=== PATIENT | male | born 1950 | race Caucasian/White ===

== ENCOUNTER 2019-01-02 18:07 | Emergency (ER) | payer MEDICARE, OTHER ==
--- OUTSIDE RECORDS SUMMARY | 2019-01-02 18:13 | XMS REPORT | Continuity of Care Document ---
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 Onset: 04/17/2017 Family history of periodic limb Kathia Dawson DNP, RN, SULEIMAN-BC Onset: 08/15 movement disorder Periodic limb movement disorder Basilio Meza M.D. 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 Tobacco Use Start: Unknown No smoking since a teenager ETOH Use Rarely consumes alcohol Tobacco Use Start: Unknown End: Patient is a former smoker Unknown Recreational Drug Use Denies Drug Use Tobacco Use Start: Unknown Heavy tobacco smoker (more than 10 cigarettes/day) Smoking When in teenage years Smoking Status Reviewed: 01/02/19 Heavy tobacco smoker (more than 10 cigarettes/day) Exercise Type/Frequency Exercises regularly Exercise Type/Frequency Walks 1 hour every Elliptical day/also dances Allergies, Adverse Reactions, Alerts Description No Known Drug Allergies Medications Active Medications SIG Qnty Indications Ordering Provider Date Carbidopa-Levodopa Take One Tablet 90tabs G20 Harjinderbhartikelton Meza, 06/21/2017 By Mouth Three M.D. 25-100mg Tablets Times A Day 30 Minutes Before Meals Melatonin ER 1 tab by mouth Unknown 03/08/2015 3mg every day every Tablets ER night Multivitamin Adults every day by Unknown 03/08/2015 45+ mouth Adlt 50+ Tablets Trazodone HCL Take One Half Unknown 50mg To One Tablet Tablets By Mouth as Needed AT Bedtime Lexapro 1/2 by mouth Unknown 10mg Tablets every day Fluticasone 2 sprays each Unknown Propionate nostril daily 50mcg/Act as needed Suspension Levothyroxine Sodium 1 by mouth Unknown every day 25mcg Tablets History Medications Carbidopa-Levodopa ER 1/2 by mouth 45tabs G20 Kathya Romy, 05/18/2017 - 25-100mg three times a M.D. 06/21/2017 Tablets ER day 30 min prior to meals or 2 hours after meal. Mucinex 1 by mouth as Unknown 08/16/2015 - 600mg Tablets ER 12HR directed / as 02/13/2017 needed Montelukast Sodium 1 by mouth every Unknown 08/16/2015 - 10mg Tablets day 02/13/2017 Fluticasone Propionate 2 sprays each Unknown 04/29/2015 - 50mcg/Act nostril daily as 02/13/2017 Suspension needed Lexapro take one-half Unknown 03/08/2015 - 5mg Tablets tablet by mouth 02/13/2017 daily. Mucinex twice a day as Unknown - 600mg Tablets ER 12HR needed 06/20/2017 Immunizations CPT Code Status Date Vaccine Lot # [id number] Given 08/17/2015 Fluvirin Im 3Yrs And Older Vital Signs Date Vital Result Comment 01/02/2019 3:36pm Height 70 inches 5'10" Weight 165.00 lb Heart Rate 58 /min BP Systolic 102 mmHg BP Diastolic 68 mmHg BMI (Body Mass Index) 23.7 kg/m2 09/11/2018 2:24pm Height 70 inches 5'10" Weight 163.25 lb Heart Rate 62 /min BP Systolic Sitting 104 mmHg Lue reg cuff BP Diastolic Sitting 70 mmHg Lue reg cuff Respiratory Rate 18 /min O2 % BldC Oximetry 97 % On Ra BMI (Body Mass Index) 23.4 kg/m2 08/15/2018 4:03pm Height 70 inches 5'10" Weight 174.00 lb Heart Rate 68 /min BP Systolic Sitting 90 mmHg large adult cuff left arm BP Diastolic Sitting 70 mmHg large adult cuff left arm Respiratory Rate 16 /min BMI (Body Mass Index) 25.0 kg/m2 02/22/2018 3:02pm Height 70 inches 5'10" Weight 160.00 lb Heart Rate 74 /min BP Systolic Sitting 110 mmHg BP Diastolic Sitting 78 mmHg Respiratory Rate 16 /min BMI (Body Mass Index) 23.0 kg/m2 11/12/2017 2:45pm Height 70 inches 5'10" Weight 165.00 lb Heart Rate 80 /min BP Systolic Sitting 92 mmHg BP Diastolic Sitting 58 mmHg Respiratory Rate 16 /min BMI (Body Mass Index) 23.7 kg/m2 08/15/2017 3:20pm Height 70 inches 5'10" Weight 170.50 lb with boots Heart Rate 64 /min BP Systolic Sitting 118 mmHg Rue reg cuff BP Diastolic Sitting 80 mmHg Rue reg cuff Respiratory Rate 16 /min O2 % BldC Oximetry 98 % On Ra BMI (Body Mass Index) 24.5 kg/m2 08/13/2017 2:22pm Height 70 inches 5'10" Weight 165.00 lb Heart Rate 68 /min BP Systolic 112 mmHg BP Diastolic 74 mmHg Respiratory Rate 14 /min BMI (Body Mass Index) 23.7 kg/m2 06/21/2017 3:44pm Height 70 inches 5'10" Weight 165.00 lb Heart Rate 76 /min BP Systolic Sitting 112 mmHg BP Diastolic Sitting 64 mmHg Respiratory Rate 16 /min BMI (Body Mass Index) 23.7 kg/m2 05/18/2017 3:45pm Height 70 inches 5'10" Weight 163.00 lb per pt Heart Rate 68 /min reg BP Systolic Sitting 124 mmHg Rue, reg cuff BP Diastolic Sitting 80 mmHg Rue, reg cuff Respiratory Rate 16 /min BMI (Body Mass Index) 23.4 kg/m2 04/17/2017 9:28am Height 70 inches 5'10" Weight 165.00 lb Heart Rate 60 /min BP Systolic 122 mmHg BP Diastolic 74 mmHg Respiratory Rate 14 /min BMI (Body Mass Index) 23.7 kg/m2 02/14/2017 2:19pm Height 70 inches 5'10" Weight 162.00 lb Heart Rate 64 /min BP Systolic Sitting 102 mmHg BP Diastolic Sitting 64 mmHg Respiratory Rate 14 /min O2 % BldC Oximetry 97 % BMI (Body Mass Index) 23.2 kg/m2 02/15/2016 3:19pm Height 70 inches 5'10" Weight 165.00 lb Heart Rate 56 /min BP Systolic Sitting 118 mmHg BP Diastolic Sitting 62 mmHg Respiratory Rate 16 /min O2 % BldC Oximetry 98 % BMI (Body Mass Index) 23.7 kg/m2 08/17/2015 3:35pm Height 70 inches 5'10" Weight 165.00 lb Heart Rate 60 /min BP Systolic Sitting 110 mmHg BP Diastolic Sitting 56 mmHg Respiratory Rate 14 /min O2 % BldC Oximetry 96 % BMI (Body Mass Index) 23.7 kg/m2 06/15/2015 3:39pm Height 70 inches 5'10" Heart Rate 64 /min BP Systolic 108 mmHg BP Diastolic 64 mmHg Respiratory Rate 14 /min O2 % BldC Oximetry 99 % 04/30/2015 3:36pm Height 70 inches 5'10" Weight 160.00 lb Heart Rate 65 /min BP Systolic Sitting 124 mmHg BP Diastolic Sitting 54 mmHg O2 % BldC Oximetry 97 % BMI (Body Mass Index) 23.0 kg/m2 03/09/2015 2:09pm Height 70 inches 5'10" Weight 162.25 lb Heart Rate 66 /min BP Systolic Sitting 118 mmHg BP Diastolic Sitting 64 mmHg Respiratory Rate 16 /min Body Temperature 97.1 F O2 % BldC Oximetry 98 % BMI (Body Mass Index) 23.3 kg/m2 Results Test Date Facility Test Result H/L Range Note Laboratory test 11/26/2017 [facility] Ferritin 29.7 ng/mL N 24 -336 finding [address] [place] [address] [phone] Laboratory test 05/02/2017 [facility] Copper, Serum 0.90 g/mL N 0.75-1.[address] [place] [address] [phone] Ceruloplasmin 23.3 mg/dL N 2 Laboratory test 02/14/2017 [facility] Ferritin 10.1 ng/mL Low 24-[address] [place] [address] [phone] Iron & Iron Binding 02/14/2017 [facility] Iron 192 g/dL N 50 -[address] [place] [address] [phone] Unsaturated Iron Binding 229 g/dL N Total Iron Binding Capacity 421 g/dL N 250-450 % Iron Saturation 46 % N 15-55 Laboratory test 02/14/2017 [facility] Vitamin B12 863 pg/mL N 180-914 [address] [place] [address] [phone] ADDITIONAL INFORMATION This test was developed and its performance characteristics determined by [facility] in a manner consistent with CLIA requirements. This test has not been cleared or approved by the U.S. Food and Drug Administration. Test Performed by: [facility] [address] [place] [id number] 2 REFERENCE VALUE 19.0 - 31.0 Test Performed by: [facility] - [address] [address] 3 Normal Range 180 to 914 Indeterminate Range 145 to 180 Deficient Range <145 Procedures Date Code Description Status 04/01/2015 67972 Polysomnography Sleep Staging 4+ Parameters Completed Encounters Type Date Location Provider Dx Diagnosis Office Visit 09/11/2018 [facility] Kathia Dawson, G47.33 Obstructive sleep 2:30p [facility] RN, PAPER FEEDER-BC apnea (adult) 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 disease G47.33 Obstructive sleep apnea (adult) (pediatric) G47.61 Periodic limb movement disorder Office Visit 02/22/2018 3:00p [facility] Basilio Meza, G20 [facility] M.D. disease G47.33 Obstructive sleep apnea (adult) (pediatric) Office Visit 11/12/2017 [facility] Basilio Meza, G20 Parkinson' s 2:45p [facility] M.D. 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 disease Office Visit 06/21/2017 3:45p [facility] Basilio Meza, G20 [facility] M.D. disease Office Visit 05/18/2017 3:45p [facility] Basilio Meza, G20 [facility] M.D. disease Office Visit 04/17/2017 9:30a [facility] Basilio Meza, G20 [facility] M.D. disease G47.33 Obstructive sleep apnea (adult) (pediatric) Office Visit 02/14/2017 Pulmonology And Kathia G47.33 Obstructive sleep 2:00p [facility] Dawson RN, apnea (adult) [facility] PAPER FEEDER-BC (pediatric) G47.61 Periodic limb movement disorder Office Visit 02/15/2016 Pulmonology And Kathia G47.33 Obstructive sleep 3:15p [facility] Dawson RN, apnea (adult) [facility] PAPER FEEDER-BC (pediatric) Office Visit 08/17/2015 Pulmonology And Kathia G47.33 Obstructive sleep 3:30p [facility] Dawson RN, apnea (adult) [facility] PAPER FEEDER-BC (pediatric) Office Visit 06/15/2015 Pulmonology And Kathia G47.33 Obstructive sleep 3:30p [facility] Dawson RN, apnea (adult) [facility] PAPER FEEDER-BC (pediatric) Office Visit 04/30/2015 Pulmonology And Kathia G47.33 Obstructive sleep 3:30p [facility] Dawson, RN, apnea (adult) [facility] PAPER FEEDER-BC (pediatric) G47.10 Hypersomnia, unspecified Office Visit 03/09/2015 Pulmonology And Yin 780.54 Hypersomnia 2:00p [facility] Deandre Unspecified [facility] Office Visit 11/29/2009 Neurosurgery Yayo Najera 722.10 Intervertebral Disc 2:30p [facility] Joaquim Crowder 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 at [facility]08/27/2019 2:00 pm - Kathia Dawson DNP, RN, PAPER FEEDER- BC at [facility]01/02/2019 - Carlitos Sánchez N.PLorenaG20 Parkinson's diseaseFollow up:[address] Meza
--- OUTSIDE RECORDS SUMMARY | 2019-01-02 18:14 | XMS REPORT | Continuity of Care Document ---
:1950 External Reference #:[id number] Author Name Odilon More M.D. Address [address] [place] [address] Care Team Providers Name Role Phone Odilon More MD Care Team Information Drosser Unavailable Odilon More MD Primary Care Physician Unavailable Payers Date Identification Numbers Payment Provider Subscriber Effective: 2014 Policy Number: [id number] [employer] [place] Jameel Reyes PayID: [id number] [address] [place] [address] Effective: 2014 Policy Number: [id number] [place]el Reyes Expires: 2018 PayID: [id number] [address] [place] [address] Effective: 2014 Policy Number: [id number] [facility]el Reyes Group Number: [id number] [address] PayID: [id number] [place] [address] Problems Active Problems Provider Date Allergic rhinitis Odilon More M.D. Onset: 09/27/2012 Hyperlipidemia Odilon More M.D. Onset: 02/28/2015 Headache Odilon More M.D. Onset: 08/10/2015 Mixed hyperlipidemia Odilon More M.D. Onset: 08/10/2015 Non-neoplastic nevus Odilon More M.D. Onset: 01/29/2017 Obstructive sleep apnea syndrome Odilon More M.D. Onset: 01/29/2017 Chronic maxillary sinusitis Odilon More M.D. Onset: 08/02/2017 Parkinson's disease Odilon More M.D. Onset: 08/02/2017 Allergic contact dermatitis due to plants, Odilon More M.D. Onset: except food Iron deficiency Odilon More M.D. Onset: 02/07/2018 Malaise and fatigue Odilon More M.D. Onset: 12/19/2018 Knee pain Odilon More M.D. Onset: 12/19/2018 Inactive Problems Arthralgia of the lower leg Carolann Kendrick M.D. Onset: 06/12/2011 Inactive: 08/02/2017 Allergic rhinitis due to animals Edu Shrestha M.D. Onset: 06/12/2011 Inactive: 08/02/2017 Anxiety state SULEIMAN Garcia Onset: 06/12/2011 Inactive: 08/02/2017 Candidiasis Joann Patterson M.D. Onset: 01/25/2012 Inactive: 08/02/2017 Hard prostate Odilon More M.D. Onset: 09/27/2012 Inactive: 08/02/2017 Acute sinusitis Alonso Subramanian M.D. Onset: 05/02/2014 Inactive: 08/02/2017 Acute upper respiratory infection Alonso Subramanian M.D. Onset: 05/02/2014 Inactive: 08/02/2017 Multiple joint pain Odilno More M.D. Onset: 11/03/2014 Inactive: 08/02/2017 Symptom of skin and integumentary tissue Odilon More M.D. Onset: 2014 Inactive: 08/02/2017 Essential tremor Odilon More M.D. Onset: 08/10/2015 Inactive: 08/02/2017 Herpes zoster without complication Odilon More M.D. Onset: 08/10/2015 Inactive: 08/02/2017 Acute maxillary sinusitis Travis Bess M.D. Onset: 08/20/2015 Inactive: 08/02/2017 Abnormal involuntary movement Odilon More M.D. Onset: 01/29/2017 Inactive: 08/02/2017 Adult health examination Odilon More M.D. 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 Tobacco Use Start: Unknown Nonsmoker Tobacco Use Start: Unknown End: Former Cigarette Smoker 1 x 1 year in high Unknown [employer] Daily school. Smoking Status Reviewed: 09/17/18 Former Cigarette Smoker 1 x 1 year in high [employer] Daily school. Tobacco Use Start: Unknown Nonsmoker Allergies, Adverse Reactions, Alerts Active Allergies Reaction Severity Comments Date NKDA 01/25/2012 Inactive Allergies Nka 05/05/1998 Soy 02/04/2010 Medications Active Medications SIG Qnty Indications Ordering Date Provider Physical Therapy treatment and Odilon FLorena 12/19/2018 evaluation low back Joaquim More pain, right knee pain Physical Therapy treatment and Kinza 09/17/2018 evaluation of mid Yadi Medina thoracic spine, chronic intermittant Melatonin 1 by mouth every Odilon F. 3mg Tablets night at bedtime Joaquim More Trazodone HCL take 1/4 tablet by Odilon F. 50mg mouth at bedtime Joaquim More Tablets Lexapro 1 by mouth every day Unknown 5mg Tablets Carbidopa-Levodopa 1 by mouth three Unknown times daily (pt uses 25-100mg Tablets prn) History Medications Prednisone take 2 by mouth 10tabs M54.16 Amarilis Euceda 08/28/2018 - 20mg as one dose MICHAEL Arambula 09/11/2018 Tablets daily until gone Prednisone 1 by mouth every 5tabs Michaela 05/11/2018 - 50mg day Star [facility] 08/27/2018 Tablets Clarithromycin 1 by mouth twice 28tabs Michaela 05/11/2018 - 250mg a day [facility] 08/27/2018 Tablets Doxycycline Hyclate take one by 20caps J01.00 Kinza 04/10/2018 - mouth twice Yadi Medina 04/20/2018 100mg Capsules daily Mometasone Furoate apply three 15gm Odilon FLorena 02/07/2018 - times a day as Joaquim More 08/27/2018 0.1% Cream needed Medrol take as directed 21units Odilon DanielLorena 02/07/2018 - 4mg TBPK Joaquim More 04/03/2018 Medrol dose-pack as 1pack R09.81 [place] 07/10/2017 - 4mg Tablets instructed Star, [facility] 02/07/2018 Zyrtec Allergy 1 by mouth every 90tabs R09.81 Michaela 07/10/2017 - 10mg day, please fill [facility] 02/07/2018 Tablets with generic Doxycycline Hyclate take one by 14caps J01.00 Amarilis Euceda 05/16/2017 - mouth twice MICHAEL Arambula 07/10/2017 100mg Capsules daily until gone Zostavax Odilon Coelho 01/29/2017 - Joaquim More 03/02/2017 09415Mdg/0.65ML Suspension Rec Amoxicillin/Clavulan 1 twice a day w/ 28tabs J06.9 Yolie Lino 2016 - ate Potassium food. [facility] 01/29/2017 875-125mg Tablets Zyrtec Allergy use by mouth bid 14caps Travis Sampson 11/01/2015 - 10mg X 7 Days Joaquim Bess 09/08/2016 Capsules Amoxicillin/Clavulan 1 twice a day w/ 20tabs Travis Sampson 08/20/2015 - ate Potassium food. Joaquim Bess 11/01/2015 875-125mg Tablets Valacyclovir HCL 1 by mouth three 21tabs Kinza 07/13/2015 - 1gm times a day Yadi Medina 07/20/2015 Tablets Tramadol HCL 1 by mouth every 20tabs B02.9 Kinza 07/13/2015 - 50mg 6 hours as Yadi Medina 08/10/2015 Tablets needed Gentamicin Sulfate 1-2 drops to 1dropper H00.022 Jerry Mcguire M.D. 2014 - affected eye 07/13/2015 0.3% Solution every 3 hours while awake Fluticasone Instill 1 To 2 16units Alonso Subramanian, 05/18/2014 - Propionate Sprays In Each M.D. 08/27/2018 50mcg/Act Nostril Daily as Suspension Needed For Allergies Amoxicillin/Clavulan 1 twice a day w/ 20tabs Alonso Subramanian, 05/07/2014 - ate Potassium food. M.D. 05/18/2014 875-125mg Tablets Lexapro 1 by mouth every [facility] 05/02/2014 - 10mg Tablets day [facility] 11/03/2014 [place] Azithromycin 2 by mouth today 6tabs 461.8 Alonso Subramanian, 05/02/2014 - 250mg and 1 by mouth x M.D. 05/07/2014 Tablets 4 days Azithromycin 2 po qd for 3 10tabs Odilon FLorena 09/16/2013 - 250mg days, then 1 po Shallish, ReinaldoDLorena 09/29/2013 Tablets qd for 4 days Amoxicillin/Clavulan 1 by mouth twice 20tabs 461.0 Jerry Mcguire M.D. 2013 - ate Potassium a day for 1 09/16/2013 0days 875-125mg Tablets Amoxicillin/Potassiu 1 po bid x 10 20tabs 461.0 Yolie Lino, 09/02/2012 - m Clavulanate with food [employer] 09/27/2012 875-125mg Tablets Amoxicillin/Potassiu 1 po bid x 14 28tabs 461.0 Yolie Holland, 07/11/2012 - m Clavulanate with food [employer] 09/02/2012 875-125mg Tablets Zithromax 2 po qd today , 1tabs 461.0 Odilon FLorena 05/13/2012 - 250mg then 1 po qd ShallJoaquim durham 05/22/2012 Tablets times 4 PT Referral Please refer for Joann Morris 01/25/2012 - evaluation of william Patterson M.D. 05/13/2012 knee pain. Nystatin/Triamcinolo apply to 60g Joann Morris 01/25/2012 - ne affected area Joaquim Patterson 05/13/2012 bid until 214911-2.1Unit/GM-% resolution, no Cream longer than 2 weeks Lotrimin AF apply thin layer 24gm [address] 03/31/2011 - 1% Cream to affected area Joaquim Mercado 05/13/2012 twice daily. #2 tubes Nystatin apply thin layer 30gm Kay SiddiquiLorena 03/11/2011 - bid to affected Joaquim Mercado 03/31/2011 874884Fsbn/GM area. Ointment Amoxicillin/Potassiu 1 po bid 20tabs [address] 08/15/2010 - m Clavulanate Joaquim Mercado 03/31/2011 875-125mg Tablets Physical Therapy dx: low back 724.2 Kay Sultana 08/11/2009 - pain Joaquim Mercado 11/10/2009 #2: Carpal tunnel syndrome Out Of Work Until out of work Odilon Coelho 05/05/2008 - until Joaquim More 08/19/2008 05/07/08 Zithromax 2 tabs po daily 9tabs 461.9 Edu Bell 10/26/2007 - 250mg for three days Joaquim Shrestha 04/02/2008 Tablets for one day then 1 qd x 3 Tamiflu 1 PO bid 10caps Odilon Coelho 10/25/2006 - 75mg Capsules Joaquim More 02/28/2007 Zithromax 2 PO qd Today , 1tabs Odilon Coelho 10/25/2006 - 250mg Then 1 PO qd Joaquim More 10/25/2006 Tablets Times 4 Wrist Splint, Right Wrist 1units 356.8 Telma Bland, 08/23/2006 - Restrictive Afnp-C 10/25/2006 Flex/Extend Doxycycline one po twice 20units Radha Harris, 10/24/2005 - 100mg 0 daily as [employer]-C 10/25/2006 directed For Ten Days Trazodone 1-2 PO QHS 45tabs Yolie Lino, 07/26/2005 - 50mg [employer] 02/28/2007 Tablets Lunesta 1 po q hs prn 30tabs 780.52 Yolie Lino, 07/13/2005 - 3mg Tablets [employer] 07/26/2005 Motrin one tid prn 60units Telma Bland, 09/27/2004 - 600mg Afnp-C 02/28/2007 Xanax 1 po Bid prn 10units Bang LeighLorena Gresham, 05/10/2004 - .25mg M.DLorena 05/15/2004 Serzone 1 bid 60units Yolie Holland, 04/26/2004 - 200 [employer] 07/13/2005 Wellbutrin XL 1 po qd 30units Yolie Holland, 04/06/2004 - 150mg [employer] 04/26/2004 Ambien 1 qhs prn 30units Yolie Holland, 03/26/2004 - 10mg [employer] 09/27/2004 Physical Therapy treatment and Radha Harris, 07/28/2003 - evaluation for [employer]-C 03/26/2004 left shouilder pain and neck pain after injury. also left shoulder atrophy and l Ibuprofen One PO bid -qid 60units Radha Harris, 07/28/2003 - 400mg With Food as [employer]-C 03/26/2004 Directed Lexapro 1/2 PO QHS 30units Odilon FLorena 05/12/2003 - 10mg Joaquim More 07/28/2003 Viagara 1 Tab One Half 6units Odilon F. 02/09/2003 - 50mg Hour Before Joaquim More 03/26/2004 Keflex 1 bid 20units Yolie Holland, 08/06/2002 - 500 [employer] 01/06/2003 Micki 1 PO bid 60units Yolie Holland, 08/06/2002 - 60mg [employer] 01/06/2003 Guaifenesin One bid prn 20units Telma Bland, 08/29/2001 - 600mg Afnp-C 09/12/2001 Claritin 1 qd 0units [facility] 08/29/2001 - 10mg [facility] 08/06/2002 [place] Proctosol HC Use prn 1Tube Yolie Holland, 04/05/2000 - 2.5mg [employer] 01/06/2003 Physical Therapy Treatment And Alonso Subramanian, 01/20/2000 - Evaluation LT M.D. 01/06/2003 Thigh Pain Motrin 1 PO tid prn 60units Alonso Subramanian, 01/20/2000 - 600mg M.D. 01/06/2003 Serzone 1 bid 60units [facility] 01/20/2000 - 200mg [facility] 08/06/2002 [place] Kelfex 1 PO bid 14units Odilon Coelho 12/23/1999 - 500mg Joaquim More 12/30/1999 Proctosol HC Use prn 10Ztube Travis Sampson 07/06/1999 - 2.5mg Joaquim Bess 01/20/2000 Physical Therapy Treatment And Odilon Coelho 05/18/1999 - Evaluation Of Joaquim More 07/17/1999 Leg Pain Biaxin 1 PO bid 20units Kinza 10/19/1998 - 500mg Magdalena Medina-C 10/29/1998 Augmentin 1 PO bid X 10 20units Alonso Subramanian, 09/30/1998 - 500mg Days ReinaldoDLorena 12/28/1998 Claritin 1 qd prn 30units Odilon Coelho 09/30/1998 - 10mg Joaquim More 01/20/2000 Physical Therapy Treatment And Telma Bland, 06/10/1998 - Evaluation Of Magdalena-Dinesh 09/30/1998 Upper Back Pain Augmentin 1 PO bid X 10 20units Telma Bland, 06/10/1998 - 500mg Days Henoknp-C 06/20/1998 Vancenase Aq DS 2 [place] qd 2units Odilon Coelho 05/05/1998 - Joaquim More 01/20/2000 Augmentin 1 po bid 10units Odilon Coelho 12/02/1997 - 500mg Joaquim More 08/19/2008 Entex [place] 1 PO bid 20units Telma Bland, 12/02/1997 - Afnp-C 12/12/1997 Melatonin Unknown - 1mg 11/03/2014 Capsules Ibuprofen hold medication Unknown - 200mg 08/15/2010 Tablets Lexapro 1 by mouth every Unknown - 5mg Tablets day- Dr. Forte 09/08/2016 Mucinex 1 by mouth every Unknown - 600mg Tablets 12 hours as 02/07/2018 ER 12HR needed Carbidopa Unknown - 25mg 04/03/2018 Tablets Medications Administered in Office Medication SIG Qnty Indications Ordering Provider Date TB Intradermal Test Odilon More M.D. 02/04/2010 Injection TB Intradermal Test Odilon More M.D. 08/11/2003 Injection TB Intradermal Test Nurse, Nurse 08/11/2003 Injection Immunizations CPT Code Status Date Vaccine Lot # [id number] Given 03/30/2018 High-Dose, Influenza Virus Vacccine-fluzone 65 and older 09141 Given 02/28/2017 Zostivax 39064 Given 01/29/2017 Pneumococcal Immunization [id number] 44224 Given 11/16/2014 Pneumococcal Conjugate Vacc-13 [id number] 90857 Given 02/04/2010 Tdap Tetanus, W Pertussis [id number] 71117 Given 02/14/2005 Td Immunization, For Use In Individuals 7 Years Or Older 24968 Given 05/12/2003 DO Not Use Split Influenza Virus Vaccine 82634 Given 11/19/1997 Hepatitis B Immunization, adult dosage, for intramuscular use 13618 Given 06/05/1997 Hepatitis B Immunization, adult dosage, for intramuscular use 30615 Given 05/13/1997 Hepatitis B Immunization, adult dosage, for intramuscular use Vital Signs Date Vital Result Comment 12/19/2018 8:06am BP Systolic 110 mmHg BP Diastolic 78 mmHg Heart Rate 64 /min Body Temperature 98.1 F Respiratory Rate 16 /min Height 70.5 inches 5'10.50" Weight 165.00 lb BMI (Body Mass Index) 23.3 kg/m2 09/17/2018 2:18pm BP Systolic 116 mmHg BP Diastolic 70 mmHg Heart Rate 64 /min Body Temperature 98.1 F Respiratory Rate 18 /min Height 70.5 inches 5'10.50" Weight 170.00 lb BMI (Body Mass Index) 24.0 kg/m2 09/11/2018 10:05am BP Systolic 120 mmHg BP Diastolic 70 mmHg Heart Rate 64 /min Body Temperature 98.1 F Respiratory Rate 18 /min Weight 171.00 lb 08/28/2018 6:44pm BP Systolic 122 mmHg BP Diastolic 80 mmHg Heart Rate 62 /min Body Temperature 98.1 F Height 70.5 inches 5'10.50" 05/07/2018 2:39pm BP Systolic 120 mmHg BP Diastolic 70 mmHg Heart Rate 60 /min Body Temperature 97.3 F Respiratory Rate 16 /min Height 70.5 inches 5'10.50" Weight 168.00 lb BMI (Body Mass Index) 23.8 kg/m2 04/10/2018 3:16pm BP Systolic 120 mmHg BP Diastolic 60 mmHg Heart Rate 66 /min Body Temperature 97.9 F Respiratory Rate 16 /min Height 70.5 inches 5'10.50" Weight 167.00 lb BMI (Body Mass Index) 23.6 kg/m2 02/07/2018 1:15pm BP Systolic 108 mmHg BP Diastolic 60 mmHg Heart Rate 80 /min Body Temperature 98.1 F Respiratory Rate 16 /min Height 70.5 inches 5'10.50" Weight 160.12 lb BMI (Body Mass Index) 22.6 kg/m2 08/02/2017 2:59pm BP Systolic 110 mmHg BP Diastolic 60 mmHg Heart Rate 68 /min Body Temperature 98.0 F Respiratory Rate 16 /min Height 70 inches 5'10" Weight 166.00 lb BMI (Body Mass Index) 23.8 kg/m2 07/10/2017 7:38pm BP Systolic 126 mmHg BP Diastolic 70 mmHg Heart Rate 80 /min Body Temperature 98.4 F Height 70 inches 5'10" Weight 166.12 lb BMI (Body Mass Index) 23.8 kg/m2 05/16/2017 6:05pm BP Systolic 104 mmHg BP Diastolic 72 mmHg Heart Rate 60 /min Body Temperature 97.7 F Respiratory Rate 16 /min Height 70 inches 5'10" Weight 163.12 lb BMI (Body Mass Index) 23.4 kg/m2 01/29/2017 1:37pm BP Systolic 110 mmHg BP Diastolic 58 mmHg Heart Rate 74 /min Body Temperature 98.2 F Respiratory Rate 16 /min Height 70 inches 5'10" Weight 165.00 lb BMI (Body Mass Index) 23.7 kg/m2 09/08/2016 11:13am BP Systolic 110 mmHg BP Diastolic 70 mmHg Heart Rate 60 /min Body Temperature 98.8 F Respiratory Rate 16 /min Height 70 inches 5'10" Weight 164.00 lb BMI (Body Mass Index) 23.5 kg/m2 11/01/2015 2:54pm BP Systolic 118 mmHg BP Diastolic 70 mmHg Heart Rate 58 /min Body Temperature 97.8 F Respiratory Rate 16 /min Height 70 inches 5'10" Weight 167.00 lb BMI (Body Mass Index) 24.0 kg/m2 08/20/2015 11:02am BP Systolic 118 mmHg BP Diastolic 74 mmHg Heart Rate 58 /min Body Temperature 97.2 F Respiratory Rate 16 /min Height 70 inches 5'10" Weight 168.00 lb BMI (Body Mass Index) 24.1 kg/m2 08/10/2015 5:17pm BP Systolic 138 mmHg BP Diastolic 82 mmHg Heart Rate 68 /min Body Temperature 99.7 F Height 70 inches 5'10" Weight 167.00 lb BMI (Body Mass Index) 24.0 kg/m2 07/13/2015 4:03pm BP Systolic 120 mmHg BP Diastolic 80 mmHg Heart Rate 64 /min Body Temperature 98.6 F Respiratory Rate 16 /min Height 70 inches 5'10" Weight 167.00 lb BMI (Body Mass Index) 24.0 kg/m2 07/09/2015 3:55pm BP Systolic 120 mmHg BP Diastolic 80 mmHg Heart Rate 60 /min Body Temperature 97.7 F Respiratory Rate 16 /min Height 70 inches 5'10" Weight 167.12 lb BMI (Body Mass Index) 24.0 kg/m2 11/03/2014 5:11pm BP Systolic 100 mmHg BP Diastolic 68 mmHg Heart Rate 58 /min Body Temperature 97.1 F Respiratory Rate 16 /min Height 70 inches 5'10" Weight 164.50 lb BMI (Body Mass Index) 23.6 kg/m2 05/02/2014 2:37pm BP Systolic 116 mmHg BP Diastolic 72 mmHg Heart Rate 66 /min Body Temperature 99.3 F Respiratory Rate 16 /min Height 71 inches 5'11" Weight 165.38 lb BMI (Body Mass Index) 23.1 kg/m2 09/02/2013 3:47pm BP Systolic 100 mmHg BP Diastolic 74 mmHg Heart Rate 69 /min Body Temperature 97.4 F Respiratory Rate 18 /min Height 71 inches 5'11" Weight 155.00 lb BMI (Body Mass Index) 21.6 kg/m2 09/27/2012 3:48pm BP Systolic 100 mmHg BP Diastolic 68 mmHg Heart Rate 60 /min Body Temperature 97.7 F Respiratory Rate 16 /min Height 71 inches 5'11" Weight 156.00 lb BMI (Body Mass Index) 21.8 kg/m2 Right Visual Acuity Distance 20/40 uncorrected Left Visual Acuity Distance 20/50 uncorrected 09/02/2012 4:42pm BP Systolic 120 mmHg BP Diastolic 80 mmHg Heart Rate 60 /min Body Temperature 98.4 F Height 71 inches 5'11" Weight 157.00 lb BMI (Body Mass Index) 21.9 kg/m2 07/18/2012 1:27pm BP Systolic 120 mmHg BP Diastolic 80 mmHg Heart Rate 72 /min Body Temperature 96.6 F Height 71 inches 5'11" Weight 152.00 lb BMI (Body Mass Index) 21.2 kg/m2 07/11/2012 2:22pm BP Systolic 104 mmHg BP Diastolic 70 mmHg Heart Rate 76 /min Body Temperature 97.6 F Respiratory Rate 18 /min Height 71 inches 5'11" Weight 158.00 lb BMI (Body Mass Index) 22.0 kg/m2 05/13/2012 4:22pm BP Systolic 110 mmHg BP Diastolic 68 mmHg Heart Rate 66 /min Body Temperature 97.6 F Height 71 inches 5'11" Weight 152.00 lb BMI (Body Mass Index) 21.2 kg/m2 01/25/2012 4:48pm BP Systolic 98 mmHg BP Diastolic 70 mmHg Heart Rate 60 /min Body Temperature 98.2 F Height 71 inches 5'11" Weight 151.00 lb BMI (Body Mass Index) 21.1 kg/m2 03/31/2011 2:51pm BP Systolic 90 mmHg BP Diastolic 62 mmHg Heart Rate 60 /min Body Temperature 96.5 F Height 71 inches 5'11" Weight 156.00 lb BMI (Body Mass Index) 21.8 kg/m2 08/15/2010 8:03pm BP Systolic 114 mmHg BP Diastolic 72 mmHg Heart Rate 66 /min Body Temperature 97.9 F Height 71 inches 5'11" Weight 162.00 lb BMI (Body Mass Index) 22.6 kg/m2 03/12/2010 12:12pm BP Systolic 96 mmHg BP Diastolic 69 mmHg Heart Rate 68 /min Body Temperature 97.4 F Height 71 inches 5'11" Weight 157.00 lb BMI (Body Mass Index) 21.9 kg/m2 02/04/2010 8:11am BP Systolic 100 mmHg BP Diastolic 62 mmHg Heart Rate 60 /min Body Temperature 96.7 F Height 71 inches 5'11" Weight 156.00 lb BMI (Body Mass Index) 21.8 kg/m2 11/10/2009 4:40pm BP Systolic 102 mmHg BP Diastolic 76 mmHg Heart Rate 80 /min Weight 157.00 lb 08/11/2009 3:50pm BP Systolic 118 mmHg BP Diastolic 80 mmHg Heart Rate 64 /min Body Temperature 97.4 F Respiratory Rate 16 /min Weight 162.00 lb 04/23/2009 3:53pm BP Systolic 98 mmHg BP Diastolic 70 mmHg Heart Rate 72 /min Body Temperature 96.9 F Height 71 inches 5'11" Weight 158.00 lb BMI (Body Mass Index) 22.0 kg/m2 08/19/2008 2:29pm BP Systolic 122 mmHg BP Diastolic 84 mmHg Heart Rate 68 /min Body Temperature 97.7 F Height 71 inches 5'11" Weight 158.00 lb BMI (Body Mass Index) 22.0 kg/m2 05/05/2008 1:07pm BP Systolic 122 mmHg BP Diastolic 72 mmHg Heart Rate 76 /min Body Temperature 98.4 F Height 71 inches 5'11" Weight 157.00 lb BMI (Body Mass Index) 21.9 kg/m2 04/02/2008 2:51pm BP Systolic 102 mmHg BP Diastolic 60 mmHg Heart Rate 64 /min Body Temperature 98.0 F Height 71 inches 5'11" Weight 157.00 lb BMI (Body Mass Index) 21.9 kg/m2 10/26/2007 12:49pm BP Systolic 110 mmHg BP Diastolic 70 mmHg Heart Rate 68 /min Body Temperature 98.2 F Height 71 inches 5'11" Weight 159.00 lb BMI (Body Mass Index) 22.2 kg/m2 06/03/2007 10:39am BP Systolic 110 mmHg BP Diastolic 68 mmHg Heart Rate 76 /min Body Temperature 97.0 F Height 71 inches 5'11" Weight 155.00 lb BMI (Body Mass Index) 21.6 kg/m2 02/28/2007 3:25pm BP Systolic 104 mmHg BP Diastolic 70 mmHg Heart Rate 78 /min Body Temperature 97.7 F Height 71 inches 5'11" Weight 155.00 lb BMI (Body Mass Index) 21.6 kg/m2 10/25/2006 12:27pm BP Systolic 90 mmHg BP Diastolic 60 mmHg Body Temperature 98.4 F Height 71 inches 5'11" Weight 161.00 lb BMI (Body Mass Index) 22.5 kg/m2 08/23/2006 4:14pm BP Systolic 118 mmHg BP Diastolic 64 mmHg Heart Rate 82 /min Respiratory Rate 12 /min Height 71 inches 5'11" 10/24/2005 1:20pm BP Systolic 104 mmHg BP Diastolic 64 mmHg Heart Rate 74 /min Body Temperature 98.2 F Respiratory Rate 15 /min Height 71 inches 5'11" Weight 152.00 lb BMI (Body Mass Index) 21.2 kg/m2 07/13/2005 1:09pm BP Systolic 132 mmHg BP Diastolic 70 mmHg Heart Rate 74 /min Height 71 inches 5'11" Weight 150.00 lb BMI (Body Mass Index) 20.9 kg/m2 02/14/2005 5:47pm BP Systolic 110 mmHg BP Diastolic 70 mmHg Heart Rate 88 /min Body Temperature 99.3 F Height 71 inches 5'11" 12/05/2004 3:20pm BP Systolic 112 mmHg BP Diastolic 60 mmHg Heart Rate 68 /min Height 71 inches 5'11" Weight 151.00 lb BMI (Body Mass Index) 21.1 kg/m2 09/27/2004 11:26am BP Systolic 108 mmHg BP Diastolic 70 mmHg Heart Rate 68 /min Height 71 inches 5'11" Weight 148.00 lb BMI (Body Mass Index) 20.6 kg/m2 06/07/2004 4:21pm BP Systolic 98 mmHg BP Diastolic 64 mmHg Heart Rate 84 /min Height 71 inches 5'11" Weight 147.00 lb BMI (Body Mass Index) 20.5 kg/m2 05/10/2004 1:35pm BP Systolic 108 mmHg BP Diastolic 60 mmHg Heart Rate 80 /min Height 71 inches 5'11" Weight 144.00 lb BMI (Body Mass Index) 20.1 kg/m2 04/26/2004 4:16pm BP Systolic 110 mmHg BP Diastolic 80 mmHg Heart Rate 80 /min Height 71 inches 5'11" Weight 145.00 lb BMI (Body Mass Index) 20.2 kg/m2 03/26/2004 11:07am BP Systolic 120 mmHg BP Diastolic 80 mmHg Heart Rate 84 /min Height 71 inches 5'11" Weight 145.00 lb BMI (Body Mass Index) 20.2 kg/m2 12/01/2003 3:52pm BP Systolic 90 mmHg BP Diastolic 60 mmHg Heart Rate 72 /min Body Temperature 97.1 F Height 71 inches 5'11" Weight 154.00 lb BMI (Body Mass Index) 21.5 kg/m2 07/28/2003 4:49pm BP Systolic 104 mmHg BP Diastolic 70 mmHg Heart Rate 84 /min Height 71 inches 5'11" Weight 155.00 lb BMI (Body Mass Index) 21.6 kg/m2 05/12/2003 1:06pm BP Systolic 102 mmHg BP Diastolic 72 mmHg Heart Rate 68 /min Height 71 inches 5'11" Weight 153.00 lb BMI (Body Mass Index) 21.3 kg/m2 02/09/2003 4:46pm BP Systolic 112 mmHg BP Diastolic 70 mmHg Heart Rate 60 /min Height 71 inches 5'11" Weight 151.00 lb BMI (Body Mass Index) 21.1 kg/m2 01/06/2003 4:13pm BP Systolic 106 mmHg BP Diastolic 70 mmHg Heart Rate 76 /min Height 71 inches 5'11" Weight 156.00 lb BMI (Body Mass Index) 21.8 kg/m2 08/06/2002 11:35am BP Systolic 110 mmHg BP Diastolic 64 mmHg Heart Rate 76 /min Body Temperature 96.7 F Height 71 inches 5'11" Weight 159.00 lb BMI (Body Mass Index) 22.2 kg/m2 12/04/2001 2:02pm BP Systolic 108 mmHg BP Diastolic 70 mmHg Height 71 inches 5'11" Weight 164.00 lb BMI (Body Mass Index) 22.9 kg/m2 08/29/2001 10:55am BP Systolic 112 mmHg BP Diastolic 78 mmHg Body Temperature 97.4 F Height 71 inches 5'11" Weight 163.00 lb BMI (Body Mass Index) 22.7 kg/m2 08/06/2001 2:14pm Body Temperature 97.4 F Height 71 inches 5'11" Weight 157.00 lb BMI (Body Mass Index) 21.9 kg/m2 01/29/2001 9:44am BP Systolic 108 mmHg BP Diastolic 68 mmHg Heart Rate 84 /min Height 71 inches 5'11" Weight 157.00 lb BMI (Body Mass Index) 21.9 kg/m2 01/20/2000 1:21pm BP Systolic 108 mmHg BP Diastolic 70 mmHg Height 71 inches 5'11" Weight 152.00 lb BMI (Body Mass Index) 21.2 kg/m2 12/23/1999 4:24pm BP Systolic 100 mmHg LA SM Cuff BP Diastolic 70 mmHg LA SM Cuff Body Temperature 97.3 F Height 71 inches 5'11" Weight 152.00 lb BMI (Body Mass Index) 21.2 kg/m2 12/28/1998 1:32pm Height 71 inches 5'11" Weight 143.00 lb 10/11/1998 4:18pm Body Temperature 97.4 F 09/30/1998 2:30pm Body Temperature 96.1 F Weight 146.00 lb 06/10/1998 3:43pm BP Systolic 96 mmHg BP Diastolic 60 mmHg Body Temperature 97.6 F Weight 151.50 lb 05/05/1998 6:09pm BP Systolic 110 mmHg BP Diastolic 60 mmHg Weight 151.00 lb 12/02/1997 3:26pm Body Temperature 97.9 F Weight 151.00 lb Results Test Date Facility Test Result H/L Range Note Ua - Non Micro (Fma) 12/19/2018 [facility] Medicine Appearance clear (607)- - Color yellow Glucose, Urine (a/[facility]/CTX) neg Bilirubin neg Ketones neg SP Grav 1.020 Blood neg PH 7.0 Protein neg Urobil 0.2 Nitrite neg Leukocytes ([facility]) neg Comprehensive Metabolic 12/19/2018 Shaan Aminah([facility]) Sodium 143 mEq/L 134-149 Prof Potassium 4.7 mEq/L 3.6-5.5 Chloride 106 mEq/L 94-112 Carbon Dioxide 27 mEq/L 21-32 Glucose 99 mg/dL 70-105 BUN 24 mg/dL 6-26 Creatinine 0.9 mg/dL 0.6-1.4 BUN/Creat Ratio 26.7 CALC 8.0-36.0 Calcium 9.4 mg/dL 8.6-10.2 Total Protein 6.7 g/dL 6.4-8.3 Albumin 4.3 g/dL 3.8-5.5 Globulin 2.4 g/dL 2.0-4.8 A/G Ratio 1.8 CALC 0.6-2.3 Alk. Phosphatase 88 U/L 22-95 Alt (SGPT) 17 U/L 7-35 Ast (Sgot) 21 U/L 5-34 Total Bilirubin 0.6 mg/dL 0.2-1.3 GFR Non- >60 ml/min/1.73m^ >=60 GFR >60 ml/min/1.73m^ >=60 Laboratory test 12/19/2018 Shaan Aminah([facility]) Free T4 0.73 ng/dL Low 0.75-1.54 finding TSH 9.19 mIU/L High 0.50-6.00 Serum Iron 82 g/dL 60-150 CBC Electronic a 12/19/2018 Garduno Aminah(fma) WBC 5.5 x10^3/UL 4.0- 10.0 RBC 4.57 x10^6/UL 3.93-6.00 HGB 15.1 g/dL 12.0-17.0 HCT 45 % 35-50 MCV 98.9 fL High 80.0-95.0 MCH 33.0 pg High 25.6-32.2 MCHC 33.4 g/dL 32.2-36.0 RDW-CV 12.2 % 11.6-14.4 PLT 186 x10^3/UL 163-400 MPV 12.8 fL High 9.4-12.4 Pedrito# 3.25 x10^3/UL 1.56-6.13 Lymph# 1.65 x10^3/UL 1.18-3.74 Power# 0.49 x10^3/UL 0.24-0.82 Eos # 0.1 x10^3/UL 0.0-0.5 Baso # 0.06 x10^3/UL 0.01-0.08 Pedrito% 58.8 % 34.0-70.0 Lymph % 29.9 % 20.0-52.0 Power% 8.9 % 5.0-12.0 Eos% 1.1 % 0.7-7.0 Baso% 1.1 % 0.1-1.2 Laboratory test 12/19/2018 [facility] C Reactive 4.79 mg/L N <8.01 1 finding Protein Laboratory test 10/07/2018 [facility] PSA Diagnostic 5.358 ng/mL High 0-4.0 2 finding Ict-Hemoccult 02/14/2018 [facility] Ict Hemoccult 02/08/18 ([facility])Fma Screeni (607)- - (1) negative Ict Hemoccult-(2) 02/09/18 negative Ict-Hemoccult (3) 02/10/18 negative Comprehensive Metabolic 02/07/2018 Garduno Aminah(fma) Sodium 136 mEq/L 134-149 Prof Potassium 4.4 mEq/L 3.6-5.5 Chloride 101 mEq/L 94-112 Carbon Dioxide 25 mEq/L 21-32 Glucose 92 mg/dL 70-105 BUN 20 mg/dL 6-26 Creatinine 0.8 mg/dL 0.6-1.4 BUN/Creat Ratio 25.0 CALC 8.0-36.0 Calcium 8.6 mg/dL 8.6-10.2 Total Protein 6.8 g/dL 6.4-8.3 Albumin 4.4 g/dL 3.8-5.5 Globulin 2.4 g/dL 2.0-4.8 A/G Ratio 1.8 CALC 0.6-2.3 Alk. Phosphatase 100 U/L High 22-95 3 Alt (SGPT) 6 U/L Low 7-35 4 Ast (Sgot) 22 U/L 5-34 Total Bilirubin 0.4 mg/dL 0.2-1.3 GFR Non- >60 ml/min/1.73m^ >=60 GFR >60 ml/min/1.73m^ >=60 Lipid Profile 02/07/2018 Shaan Aminah(a) Cholesterol 182 mg/dL 120- 200 Triglycerides 118 mg/dL 30-200 HDL Cholesterol 45 mg/dL 30-70 LDL (Calculated) 113 CALC 0-129 VLDL Cholesterol 24 mg/dL 0-50 HDL Risk Factor 4.0 CALC 0.0-4.4 Laboratory test finding 02/07/2018 Shaan Aminah(a) TSH 1.71 mIU/L 0.50-6.00 PSA 5.3 ng/mL High 0.0-4.0 5 Ferritin 30 ng/mL 22-415 Serum Iron 38 g/dL Low 60-150 Ua - Non Micro (Fma) 02/07/2018 [facility] Medicine Appearance CLEAR (607)- - Color dk yellow Glucose, Urine (Fma/CMC/CTX) NEG Bilirubin NEG Ketones 15mg/dL # SP Grav 1.025 Blood NEG PH 5.5 Protein neg Urobil 0.2 Nitrite NEG Leukocytes (Fma/CMC/[facility]) NEG CBC Electronic (Fma New) 02/07/2018 [facility] Medicine WBC 6.19 4.0-10.0 (607)- - RBC 4.66 3.93-6.0 Hemoglobin (Fma/CMC/CTX) 15.4 g/dL 12.0-17.0 Hematocrit (Fma/CMC/CTX) 45.6 % 35.0-50.0 Mean Corpuscular Vol 97.9 fL High 80-95 Mean Corpuscular Hemoglobin 33.0 pg High 25.6-32.2 Mean Corpuscular Hemo Concen 33.8 g/dL 32.2-36.0 Platelets 169 10^3/ul 163-400 RDW-CV 12.5 11.6-14.4 Mean Platelet Volume 12.1 fL 8.0-12.4 Absolute Neutrophils BLD 3.21 1.56-6.13 Absolute Lymphocytes 1.90 1.18-3.74 Absolute Monocytes BLD Auto 0.88 High 0.24-0.82 Absolute Eos Blood 0.12 0.04-0.54 Absolute Basophils 0.07 0.01-0.08 Neutrophil % 51.9 % 34.0-70.0 Lymph% 30.7 % 20.0-52.0 Monocytes % 14.2 % High 5.0-12.0 Eos % 1.9 % 0.7-7.0 Basophil% 1.1 % 0-1.2 Laboratory test finding 11/26/2017 [facility] PSA Screening 4.842 ng/mL High 0- 4.0 6 Laboratory test finding 05/02/2017 [facility] Ceruloplasmin 23.3 mg/dL N 7 Copper, Serum 0.90 g/mL N 0.75-1.45 8 Ict Hemoccult (Fma) 02/16/2017 [facility] Medicine Ict Hemoccult (1) 02/05/17 neg (607)- - Ict Hemoccult-(2) 02/06/17 neg Ict-Hemoccult (3) 02/07/17 neg Iron & Iron Binding Capacity 02/14/2017 [facility] Iron 192 g/dL N 50-212 Unsaturated Iron Binding 229 g/dL N Total Iron Binding Capacity 421 g/dL N 250-450 % Iron Saturation 46 % N 15-55 Laboratory test finding 02/14/2017 [facility] Ferritin 10.1 ng/mL Low 24-336 Vitamin B12 863 pg/mL N 180-914 9 Comprehensive Metabolic 02/03/2017 Garduno Aminah(a) Sodium 141 mEq/L 134-149 Prof Potassium 4.4 mEq/L 3.6-5.5 Chloride 102 mEq/L 94-112 Carbon Dioxide 25 mEq/L 21-32 Glucose 91 mg/dL 70-105 BUN 20 mg/dL 6-26 Creatinine 0.9 mg/dL 0.6-1.4 BUN/Creat Ratio 22.2 CALC 8.0-36.0 Calcium 8.9 mg/dL 8.6-10.2 Total Protein 6.8 g/dL 6.4-8.3 Albumin 4.2 g/dL 3.8-5.5 Globulin 2.6 g/dL 2.0-4.8 A/G Ratio 1.6 CALC 0.6-2.3 Alk. Phosphatase 84 U/L 22-95 Alt (SGPT) 12 U/L 7-35 Ast (Sgot) 16 U/L 5-34 Total Bilirubin 0.7 mg/dL 0.2-1.3 GFR Non- >60 ml/min/1.73m^ >=60 GFR >60 ml/min/1.73m^ >=60 Lipid Profile 02/03/2017 Shaan Burr([facility]) Cholesterol 165 mg/dL 120- 200 Triglycerides 85 mg/dL 30-200 HDL Cholesterol 50 mg/dL 30-70 LDL (Calculated) 98 CALC 0-129 VLDL Cholesterol 17 mg/dL 0-50 HDL Risk Factor 3.3 CALC 0.0-4.4 Laboratory test finding 02/03/2017 Shaan Aminah([facility]) TSH 1.93 mIU/L 0.50-6.00 CBC Electronic ([facility]) 02/03/2017 [facility] WBC 5.7 3.6-9.6 (607)- - RBC 4.65 3.90-5.70 Hemoglobin (Fma/CMC/CTX) 14.3 g/dL 12.1 - 17.2 Hematocrit (Fma/CMC/CTX) 43.1 % 36.1 - 50.3 Platelets 182 10^3/ul 150-400 Lymph% 33.7 % 17.0-48.0 Mixed% 4.4 Neutrophils % 61.9 Mean Corpuscular Vol 93 82.2-97.4 Mean Corpuscular Hemoglobin 30.8 27.6-33.3 Mean Corpuscular Hemo Concen 33.2 32.0-36.0 RDW 15.5 High 11.6-13.7 Mean Platelet Volume 9.2 5.5-11.0 Ua - Non Micro (a) 01/29/2017 [facility] Appearance clear (607)- - Color yellow Glucose, Urine (Fma/CMC/CTX) neg Bilirubin neg Ketones neg SP Grav 1.020 Blood neg PH 6.5 Protein neg Urobil 0.2 Nitrite neg Leukocytes (a/[facility]) neg Laboratory test 11/01/2016 [facility] PSA Screening 4.096 ng/mL High 0-4.0 finding Lipid Profile 01/08/2016 Garduno Aminah(a) Cholesterol 167 mg/dL 120- 200 Triglycerides 123 mg/dL 30-200 HDL Cholesterol 43 mg/dL 30-70 LDL (Calculated) 99 CALC 0-129 VLDL Cholesterol 25 mg/dL 0-50 HDL Risk Factor 3.9 CALC 0.0-4.4 Laboratory test 01/08/2016 Garduno Aminah([facility]) TSH 1.71 mIU/L 0.50-6.00 10 finding Laboratory test 11/03/2015 [facility] PSA Screening 4.507 High 0-4.0 11 finding ng/mL Lipid Profile 03/06/2015 Garduno Aminah([facility]) Cholesterol 204 mg/dL High 120-200 Triglycerides 131 mg/dL 30-200 HDL Cholesterol 49 mg/dL 30-70 LDL (Calculated) 129 CALC 0-129 VLDL Cholesterol 26 mg/dL 0-50 HDL Risk Factor 4.2 CALC 0.0-4.4 Comprehensive Metabolic 03/06/2015 Shaan Aminah([facility]) Sodium 140 mEq/L 134-149 Prof Potassium 4.3 mEq/L 3.6-5.5 Chloride 105 mEq/L 94-112 Carbon Dioxide 27 mEq/L 21-32 Glucose 101 mg/dL 70-105 BUN 22 mg/dL 6-26 Creatinine 1.0 mg/dL 0.6-1.4 BUN/Creat Ratio 22.0 CALC 8.0-36.0 Calcium 8.5 mg/dL Low 8.6-10.2 12 Total Protein 7.0 g/dL 6.4-8.3 Albumin 4.1 g/dL 3.8-5.5 Globulin 2.9 g/dL 2.0-4.8 A/G Ratio 1.4 CALC 0.6-2.3 Alk. Phosphatase 73 U/L 22-95 Alt (SGPT) 19 U/L 7-35 Ast (Sgot) 21 U/L 5-34 Total Bilirubin 0.6 mg/dL 0.2-1.3 GFR Non- >60 ml/min/1.73m^ >=60 GFR >60 ml/min/1.73m^ >=60 Laboratory test finding 03/06/2015 Garduno Aminah([facility]) TSH 1.67 mIU/L 0.50-6.00 13 PSA 4.6 ng/mL High 0.0-4.0 14 CBC Electronic ([facility]) 03/06/2015 [facility] WBC 5.7 3.6-9.6 (607)- - RBC 4.58 3.90-5.70 Hemoglobin (Fma/CMC/CTX) 13.6 g/dL 12.1 - 17.2 Hematocrit (Fma/CMC/CTX) 41.8 % 36.1 - 50.3 Platelets 176 10^3/ul 150-400 Lymph% 34.2 % 17.0-48.0 Mixed% 5.2 Neutrophils % 60.6 Mean Corpuscular Vol 91 82.2-97.4 Mean Corpuscular Hemoglobin 29.8 27.6-33.3 Mean Corpuscular Hemo Concen 32.6 32.0-36.0 RDW 15.1 High 11.6-13.7 Mean Platelet Volume 9.6 5.5-11.0 Ict-Hemoccult (MCR)[facility] 12/08/2014 [facility] Ict Hemoccult (1) NEG Screeni (607)- - Ict Hemoccult-(2) 11/06/14 NEG Ict-Hemoccult (3) 11/07/14 NEG CBC Electronic ([facility]) 11/03/2014 [facility] WBC 6.4 3.6-9.6 (607)- - RBC 4.24 3.90-5.70 Hemoglobin (a/CMC/CTX) 12.3 g/dL 12.1 - 17.2 Hematocrit (a/CMC/CTX) 37.8 % 36.1 - 50.3 Platelets 218 10^3/ul 150-400 Lymph% 38.6 % 17.0-48.0 Mixed% 5.6 Neutrophils % 55.8 Mean Corpuscular Vol 89 82.2-97.4 Mean Corpuscular Hemoglobin 29.0 27.6-33.3 Mean Corpuscular Hemo Concen 32.5 32.0-36.0 RDW 14.8 High 11.6-13.7 Mean Platelet Volume 8.8 5.5-11.0 Ua - Non Micro (a) 11/03/2014 Family Medicine Appearance clear (607)- - Color yellow Glucose, Urine (Fma/CMC/CTX) neg Bilirubin neg Ketones neg SP Grav 1.020 Blood neg PH 7.0 Protein neg Urobil 0.2 Nitrite neg Leukocytes (a/[facility]) neg Comprehensive Metabolic 11/03/2014 Garduno Aminah([facility]) Sodium 138 mEq/L 134-149 Prof Potassium 4.4 mEq/L 3.6-5.5 Chloride 102 mEq/L 94-112 Carbon Dioxide 30 mEq/L 21-32 Glucose 97 mg/dL 70-105 BUN 25 mg/dL 6-26 Creatinine 1.0 mg/dL 0.6-1.4 BUN/Creat Ratio 25.0 CALC 8.0-36.0 Calcium 9.1 mg/dL 8.6-10.2 Total Protein 7.3 g/dL 6.4-8.3 Albumin 4.1 g/dL 3.8-5.5 Globulin 3.2 g/dL 2.0-4.8 A/G Ratio 1.3 CALC 0.6-2.3 Alk. Phosphatase 74 U/L 22-95 Alt (SGPT) 31 U/L 7-35 Ast (Sgot) 30 U/L 5-34 Total Bilirubin 0.2 mg/dL 0.2-1.3 Laboratory test finding 11/03/2014 Garduno Aminah([facility]) TSH 1.55 mIU/L 0.50-6.00 PSA 3.9 ng/mL 0.0-4.0 Lipid Profile 11/03/2014 Garduno Aminah([facility]) Cholesterol 219 mg/dL High 120-200 Triglycerides 199 mg/dL 30-200 HDL Cholesterol 42 mg/dL 30-70 LDL (Calculated) 137 CALC High 0-129 VLDL Cholesterol 40 mg/dL 0-50 HDL Risk Factor 5.2 CALC High 0.0-4.4 Laboratory test finding 10/28/2014 [facility] PSA Diagnostic 4.491 ng/mL High 0- 4.0 15 Laboratory test finding 06/04/2014 [facility] PSA Screening 4.828 ng/mL High 0- 4.0 16 Laboratory test finding 04/28/2013 [facility] PSA Screening 3.42 ng/mL 0-4.0 17 Urinalysis 09/14/2012 [facility] Urine Color Yellow Urine Appearance Turbid Urine Specific [facility] 1.020 1.010-1.030 Urine Esterase Negative Negative Urine Nitrate Negative Negative Urine Urobilinogen Negative E.U./dL Negative Urine Protein Negative mg/dL Negative Urine pH 7.0 5-9 Urine Blood Negative Negative Urine Ketones Negative mg/dL Negative Urine Bilirubin Negative Negative Urine Glucose Negative mg/dL Negative Laboratory test finding 09/14/2012 [facility] Lipase 21 U/L Low 22-51 C Reactive Protein 0.5 mg/dL Less than 0.5 CBC Auto Diff 09/14/2012 [facility] White Blood Count 12.9 10^3/uL High 4.8- 10.8 Red Blood Count 4.59 10^6/uL 4.0-5.4 Hemoglobin 14.2 g/dL 14.0-18.0 Hematocrit 43 % 42-52 Mean Corpuscular Volume 94 fL 80-94 Mean Corpuscular Hemoglobin 31 pg 27-31 Mean Corpuscular HGB Conc 33 g/dL 31-36 Red Cell Distribution Width 15 % 10.5-15 Platelet Count 184 10^3/uL 150-450 Mean Platelet Volume 11 um3 High 7.4-10.4 Abs Neutrophils 11.8 10^3/uL High 1.5-7.7 Abs Lymphocytes 0.6 10^3/uL Low 1.0-4.8 Abs Monocytes 0.2 10^3/uL 0-0.8 Abs Eosinophils 0 10^3/uL 0-0.6 Abs Basophils 0.3 10^3/uL High 0-0.2 Abs Nucleated RBC 0 10^3/uL Comp Metabolic Panel 09/14/2012 [facility] Sodium 140 mmol/L 133-145 Potassium 3.8 mmol/L 3.5-5.0 Chloride 103 mmol/L 101-111 Co2 Carbon Dioxide 32.0 mmol/L 22-32 Anion Gap 5.0 mmol/L 2-11 Glucose 138 mg/dL High 70-100 Blood Urea Nitrogen 20 mg/dL 6-24 Creatinine 0.90 mg/dL 0.50-1.40 BUN/Creatinine Ratio 22.2 High 8-20 Calcium 9.4 mg/dL 8.1-9.9 Total Protein 7.0 g/dL 6.2-8.1 Albumin 3.8 g/dL 3.2-5.2 Globulin 3.2 g/dL 2-4 Albumin/Globulin Ratio 1.2 1-3 Total Bilirubin 0.6 mg/dL 0.4-1.5 Alkaline Phosphatase 94 U/L 30-110 Alt 28 U/L 14-54 Ast 30 U/L 12-42 Egfr Non- 85.2 >60 Egfr 109.6 >60 18 Manual Differential 09/14/2012 [facility] Neutrophil % 89 % High 38-83 Lymphocytes % 8 % Low 25-47 Monocytes % 3 % 0-13 RBC Morphology Normal Normal CBC Electronic (a) 09/09/2012 [facility] WBC 5.9 3.6-9.6 (607)- - RBC 4.45 3.90-5.70 Hemoglobin (Fma/CMC/CTX) 13.5 g/dL 12.1 - 17.2 Hematocrit (Fma/CMC/CTX) 41.6 % 36.1 - 50.3 Platelets 213 10^3/ul 150-400 Lymph% 37.1 20.5-51.1 Mixed% 5.8 Neutrophils % 57.1 Mean Corpuscular Vol 93 82.2-97.4 Mean Corpuscular Hemoglobin 30.3 27.6-33.3 Mean Corpuscular Hemo Concen 32.5 32.0-36.0 RDW 12.4 11.6-13.7 Mean Platelet Volume 9.7 6.5-11.0 Comprehensive Metabolic 09/09/2012 Garduno Aminah([facility]) Albumin 4.1 g/dL 3.8-5.5 Prof Alk. Phos. 94 U/L 22-95 Alt (SGPT) 20 U/L 10-40 Ast (Sgot) 24 U/L 5-34 BUN 24 mg/dL 6-26 Calcium 8.9 mg/dL 8.6-10.2 Chloride 104 mEq/L 94-112 Creatinine 1.1 mg/dL 0.6-1.4 Carbon Dioxide 26 mEq/L 21-32 Glucose 93 mg/dL 70-105 Sodium 143 mEq/L 134-149 Total Bilirubin 0.6 mg/dL 0.2-1.3 Total Protein 6.5 g/dL 6.3-8.1 Potassium 4.3 mEq/L 3.6-5.5 Globulin 2.4 g/dL 2.0-4.8 A/G Ratio 1.7 Calc 0.6-2.3 BUN/Creat Ratio 21.8 Calc 8.0-36.0 Lipid Profile 09/09/2012 Garduno Aminah(fma) Cholesterol 163 mg/dL 120- 200 HDL 43 mg/dL 30-70 Triglycerides 65 mg/dL 30-200 HDL Risk Factor 3.8 CALC 0.0-4.4 LDL (Calculated) 107 CALC 0-129 VLDL (Calculated) 13 mg/dL 0-50 Laboratory test 07/31/2012 [facility] PSA Diagnostic 4.44 ng/mL High 0-4.0 19 finding Laboratory test 05/20/2012 [facility] Blood Urea Nitrogen 15 mg/dL 6-24 finding Laboratory test 05/20/2012 [facility] PSA Diagnostic 14.14 NG/ML High 0-4.0 20 finding Creatinine 05/20/2012 [facility] Creatinine 0.90 mg/dL 0.50-1.40 Egfr Non- 85.2 >60 Egfr 109.6 >60 21 Laboratory test 05/13/2012 [facility] Urine Culture No growth. finding [address] [place], [place] [id number] [phone] Ua - Micro (Fma) 05/13/2012 Family [facility] Appearance CLEAR (607)- - Color YELLOW Glucose, Urine (Fma/CMC/CTX) NEG Bilirubin NEG Ketones TRACE # SP Grav 1.020 Blood NEG PH 7.0 Protein NEG Urobil 0.2 Nitrite NEG Leukocytes (Fma/CMC/[facility]) SMALL # Hyaline - /Lpf Granular - /Lpf WBC (Fma,[facility]) 8-12 # RBC 0-1 # Mucus (Fma/CBC/[facility]) - /Lpf Epith FEW /Lpf # Bacteria 2+ /Hpf # Amorphous (Fma/CMC/[facility]) SLT /Lpf # Crystals, Fluid (Fma/CMC/CTX) - Z#Comments SEE COMMENTS # 22 Laboratory test 12/20/2010 [facility] PSA,Diagnostic 3.08 NG/ML 0-4 23 finding Comprehensive 02/04/2010 Garduno Aminah(a) Albumin 4.3 g/dL 3.8-5.5 Metabolic Prof Alk. Phos. 82 U/L 22-95 Alt (SGPT) 14 U/L 10-40 Ast (Sgot) 14 U/L 5-34 BUN 19 mg/dL 6-26 Calcium 9.0 mg/dL 8.6-10.2 Chloride 98 mEq/L 94-112 Creatinine 0.9 mg/dL 0.6-1.4 Carbon Dioxide 32 mEq/L 21-32 Glucose 91 mg/dL 70-105 Sodium 141 mEq/L 134-149 Total Bilirubin 1.0 mg/dL 0.2-1.3 Total Protein 7.0 g/dL 6.3-8.1 Potassium 4.4 mEq/L 3.6-5.5 Globulin 2.7 g/dL 2.0-4.8 A/G Ratio 1.6 Calc 0.6-2.2 BUN/Creat Ratio 20.6 Calc 8.0-36.0 Lipid Profile 02/04/2010 Garduno Aminah(a) Cholesterol 174 mg/dL 120- 200 HDL 44 mg/dL 30-70 Triglycerides 93 mg/dL 30-200 HDL Risk Factor 3.9 CALC Low 4.2-7.0 LDL (Calculated) 111 CALC 0-129 VLDL (Calculated) 19 mg/dL 0-50 Laboratory test finding 02/04/2010 Garduno Aminah([facility]) TSH 1.99 mIU/L 0.50-6.00 PSA 4.00 ng/mL 0.00-4.00 MMR Imm 02/04/2010 [facility] Rubella Antibodies, IgG <5 IU/mL 24 [address] [place] [address] [phone] Rubeola Ab, IgG, Eia 5.47 index High 0.00-0.90 25 Mumps Abs, IgG 4.23 index High 0.00-0.90 26 Laboratory test 02/04/2010 [facility] Varicella 2.08 High 0.00-0.90 27 finding 28 [facility] [address] AB,Igg [phone] Ua - Non Micro 02/04/2010 Family [facility] Appearance CLEAR (a) (607)- - Color YELLOW Glucose, Urine (Fma/CMC/CTX) NEG Bilirubin NEG Ketones TRACE # SP Grav 1.02 Blood NEG PH 6.5 Protein NEG Urobil 0.2 Nitrite NEG Leukocytes (Fma/CMC/[facility]) NEG CBC (a) 02/04/2010 [facility] WBC 6.3 3.6-9.6 (607)- - RBC 4.80 3.90-5.70 Hemoglobin (Fma/CMC/CTX) 16.1 g/dL 12.1 - 17.2 Hematocrit (Fma/CMC/CTX) 45.4 % 36.1 - 50.3 Mean Corpuscular Vol 94.6 82.2-97.4 Mean Corpuscular Hemaglobin 33.5 High 27.6-33.3 Mean Corpuscular Hemo Concen 35.5 33.0-36.0 Platelets 168 10^3/ul 150-400 Lymph% 30.9 20.5-51.1 Mixed% 8.7 Neutrophils % 60.4 RDW 12.9 11.6-13.7 Mean Platelet Volume 13.7 High 7.4-10.4 Laboratory test 10/14/2008 [facility] PSA Screening 3.41 NG/ML 0-4 28 finding Laboratory test 05/05/2008 [facility] Throat - Beta NEGATIVE @ finding (607)- - Strep Fma 48HRS Ict Hemoccult 04/30/2008 [facility] Ict Hemoccult NEG 04/04/08 ([facility]) (607)- - (1) Ict Hemoccult-(2) NEG 04/05/08 Ict-Hemoccult (3) NEG 04/06/08 Comprehensive Metabolic 04/11/2008 Shaan Aminah([facility]) Albumin 4.1 g/dL 3.8-5.5 29 Prof Alk. Phos. 80 U/L 22-95 Alt (SGPT) 24 U/L 10-40 Ast (Sgot) 23 U/L 5-34 BUN 20 mg/dL 6-26 Calcium 9.1 mg/dL 8.6-10.2 Chloride 97 mEq/L 94-112 Creatinine 1.2 mg/dL 0.6-1.4 Carbon Dioxide 28 mEq/L 21-32 Glucose 98 mg/dL 70-105 Sodium 135 mEq/L 134-149 Total Bilirubin 1.0 mg/dL 0.2-1.3 Total Protein 6.9 g/dL 6.3-8.1 Potassium 4.2 mEq/L 3.6-5.5 Globulin 2.8 g/dL 2.0-4.8 A/G Ratio 1.5 Calc 0.6-2.2 BUN/Creat Ratio 16.2 Calc 8.0-36.0 Lipid Profile 04/11/2008 Garduno Aminah([facility]) Cholesterol 192 mg/dL 120- 200 HDL 41 mg/dL 30-70 Triglycerides 131 mg/dL 30-200 HDL Risk Factor 4.7 CALC 4.2-7.0 LDL (Calculated) 125 CALC 0-129 VLDL (Calculated) 26 mg/dL 0-50 Laboratory test finding 04/11/2008 Shaan Aminah([facility]) TSH 1.73 mIU/L 0.50-6.00 PSA 4.10 ng/mL High 0.00-4.00 30 CBC ([facility]) 04/11/2008 [facility] WBC 6.1 3.6-9.6 (607)- - RBC 4.51 3.90-5.70 Hemoglobin (Fma/CMC/CTX) 15.0 g/dL 12.1 - 17.2 Hematocrit (Fma/CMC/CTX) 43.5 % 36.1 - 50.3 Mean Corpuscular Vol 96.5 82.2-97.4 Mean Corpuscular Hemaglobin 33.3 27.6-33.3 Mean Corpuscular Hemo Concen 34.5 33.0-36.0 Platelets 166 10^3/ul 150-400 Lymph% 28.1 20.5-51.1 Mixed% 8.3 Neutrophils % 63.3 RDW 12.8 11.6-13.7 Mean Platelet Volume 14.6 High 7.4-10.4 Ua - Non Micro ([facility]) 04/02/2008 [facility] Appearance CLEAR (607)- - Color YELLOW Glucose, Urine (Fma/CMC/CTX) NEG Bilirubin NEG Ketones NEG SP Grav 1.020 Blood NEG PH 6.5 Protein NEG Urobil 0.2 Nitrite NEG Leukocytes (a/CMC/[facility]) NEG Surgical 05/28/2007 [facility] Surgical <SEE 31 Pathology Pathology NOTE> Ict Hemoccult 12/06/2006 [facility] Ict Hemoccult NEG ([facility]) (607)- - (1) Ict Hemoccult-(2) NEG Ict-Hemoccult (3) NEG Laboratory test 10/25/2006 [facility] Flu A&B POSITIVE # Negative finding (607)- - Mumps/Measles/Rubel 08/11/2003 [facility] Mumps Titer 2.23 Index [address] [employer] [place], [place] [id number] [phone] Rubella Titer Igg AB 0.11 @COR Index AB 33 Rubeola Titer Igg AB 2.73 Index 34 Lipid Profile 07/30/2003 [facility] Medicine Cholesterol 157 mg/dL 120-200 ([facility]) (607)- - (Fma/CMC/[facility]) Triglyceride 83 mg/dL 30-200 HDL-Chol 44 30-70 LDL, Calculated (a/CMC) 97 CALC 0-129 VLDL 17 0-50 HDL Risk Factor (a) 3.6 CALC Low 4.2-7.0 Stool For Occult Blood X 05/29/2003 [facility] Occult Blood #1 NEG 05/13/03 3 (607)- - Occult Blood #2 NEG 05/14/03 Occult Blood #3 NEG 05/19/03 CBC Electronic ([facility]) 05/12/2003 [facility] WBC 8.7 3.6-9.6 (607)- - Lymphocytes 26.5 % 20.5 - 51.1 Monocytes 3.5 % 1.7-9.3 Granulocytes 70.0 % 42.2 - 75.2 Lymphocytes 2.3 10^3/uL 0.7 - 4.9 Monocytes 0.3 10^3/uL 0.1 - 0.9 Granulocytes 6.1 10^3/uL 1.5 - 7.2 RBC 4.65 3.90-5.70 Hemoglobin (Fma/CMC/CTX) 15.2 g/dL 12.1 - 17.2 Hematocrit (Fma/CMC/CTX) 44.6 % 36.1 - 50.3 Mean Corpuscular Vol 95.9 82.2-97.4 Mean Corpuscular Hemaglobin 32.6 27.6-33.3 Mean Corpuscular Hemo Concen 34.0 33.0-34.8 RDW 11.6 11.6-13.7 Platelets 228. 10^3/ul 150-400 Mean Platelet Volume 10.1 7.4-10.4 Ua - Non Micro (a New) 05/12/2003 Family Medicine Appearance CLEAR (607)- - Color DK BROWN Glucose NEG Bilirubin ICTO NEG Ketones TRACE SP Grav >=1.030 Blood NEG PH 5.5 Protein NEG Urobil 1.0 Nitrite NEG Leukocytes NEG Comp Metabolic 05/12/2003 [facility] Glucose, Serum 92 mg/dL 70- 118 ([facility]) (607)- - (Fma/CMC/CTX) BUN (Fma/CMC/[facility]) 22 mg/dL 6-26 Creatinine (Fma/CMC/CTX) 0.8 mg/dL 0.6-1.4 BUN/Creatinin Ratio 26.2 8.0-36 Sodium 147 134-149 Potassium 4.8 3.6-5.5 Chloride 106 mEq/L 94-112 Co2 27 21-32 Calcium (Fma/CMC/[facility]) 9.5 mg/dL 8.6-10.0 Total Protein 7.4 g/dL 6.3-8.1 Albumin (a/CMCC/[facility]) 4.5 3.8-5.5 Globulin 3.0 2.0-4.8 A/G Ratio (Fma/CMC/[facility]) 1.5 0.6-2.2 Alkaline Phosphatase (F/C/CTX) 82 U/L 22-95 Alt (SGPT) 16 10-40 Ast (Sgot) (Fma/CMC/[facility]) 17 U/mL 5-34 Bilirubin, Total 1.0 mg/dL 0.2-1.3 Lipid Profile ([facility]) 05/12/2003 [facility] Cholesterol 188 mg/dL 120 -200 (607)- - Triglyceride 78 mg/dL 30-200 HDL-Chol 41 30-70 LDL-Calculated ([facility]) 132 CALC High 0-129 VLDL 16 0-50 HDL Risk Factor ([facility]) 4.6 CALC 4.2-7.0 Laboratory test finding 05/12/2003 [facility] PSA 1.31 0.0-4.0 (607)- - TSH 1.83 uIU/ml 0.5-6.0 Ua - Micro ([facility] New) 12/04/2001 Family Medicine Appearance CLEAR BROWN (607)- - Glucose NEGATIVE Bilirubin NEGATIVE Ketones NEGATIVE SP Grav 1.015 Blood 2+ PH 7.0 Protein NEGATIVE Urobil 0.2 Nitrite NEGATIVE Leukocytes NEGATIVE Hyaline - /Lpf Granular - /Lpf WBC'S 0-1 RBC'S 25-50 Mucus SM AMT /Lpf Epith - Bacteria RARE Amorphous - /Lpf Crystals - /Lpf Comments - 1 serum [id number] 2 Serum levels of PSA measured using the [employer] DXI Hybritech immunoassay should not be interpreted as absolute evidence of the presence or absence of disease. The PSA value should be used in conjunction with other pertinent clinical diagnostic procedures. The values obtained with different assay methods or kits cannot be used interchangeably. 3 RESULTS VERIFIED BY REPEAT ANALYSIS 4 RESULTS VERIFIED BY REPEAT ANALYSIS 5 consistent w/ previous results 6 Serum levels of PSA measured using the [employer] DXI Hybrite[employer] immunoassay should not be interpreted as absolute evidence of the presence or absence of disease. The PSA value should be used in conjunction with other pertinent clinical diagnostic procedures. The values obtained with different assay methods or kits cannot be used interchangeably. 7 REFERENCE VALUE 19.0 - 31.0 Test Performed by: [facility] - [address] [address] 8 ADDITIONAL INFORMATION This test was developed and its performance characteristics determined by [facility] in a manner consistent with CLIA requirements. This test has not been cleared or approved by the U.S. Food and Drug Administration. Test Performed by: [facility] [employer] - [facility] [address] [place] [address] 9 Normal Range 180 to 914 Indeterminate Range 145 to 180 Deficient Range <145 10 FASTING 11 Serum levels of PSA measured using the GenomeQuest DXI Hybritech immunoassay should not be interpreted as absolute evidence of the presence or absence of disease. The PSA value should be used in conjunction with other pertinent clinical diagnostic procedures. The values obtained with different assay methods or kits cannot be used interchangeably. 12 RESULTS VERIFIED BY REPEAT ANALYSIS 13 FASTING 14 RESULTS VERIFIED BY REPEAT ANALYSIS 15 Serum levels of PSA measured using the [employer] DXI Hybritech immunoassay should not be interpreted as absolute evidence of the presence or absence of disease. The PSA value should be used in conjunction with other pertinent clinical diagnostic procedures. The values obtained with different assay methods or kits cannot be used interchangeably. 16 Serum levels of PSA measured using the Gavi Franca DXI Hybritech immunoassay should not be interpreted as absolute evidence of the presence or absence of disease. The PSA value should be used in conjunction with other pertinent clinical diagnostic procedures. The values obtained with different assay methods or kits cannot be used interchangeably. 17 Serum levels of PSA measured using the [employer] [place] DXI Hybritech immunoassay should not be interpreted as absolute evidence of the presence or absence of disease. The PSA value should be used in conjunction with other pertinent clinical diagnostic procedures. The values obtained with different assay methods or kits cannot be used interchangeably. 18 Because ethnic data is not always readily available, this report includes an eGFR for both -Americans and non- Americans. The National Kidney Disease Education Program (NKDEP) does not endorse the use of the MDRD equation for patients that are not between the ages of 18 and 70, are , have extremes of body size, muscle mass, or nutritional status, or are non- or non-. According to the National Kidney Foundation, irrespective of diagnosis, the stage of the disease is based on the level of kidney function: Stage Description GFR(mL/min/1.73 m(2)) 1 Kidney damage with normal or decreased GFR 90 2 Kidney damage with mild decrease in GFR 60-89 3 Moderate decrease in GFR 30-59 4 Severe decrease in GFR 15-29 5 Kidney failure <15 (or dialysis) 19 Serum levels of PSA measured using the [employer]Quest DXI Hybritech immunoassay should not be interpreted as absolute evidence of the presence or absence of disease. The PSA value should be used in conjunction with other pertinent clinical diagnostic procedures. The values obtained with different assay methods or kits cannot be used interchangeably. 20 Serum levels of PSA measured using the GenomeQuest DXI Hybritech immunoassay should not be interpreted as absolute evidence of the presence or absence of disease. The PSA value should be used in conjunction with other pertinent clinical diagnostic procedures. The values obtained with different assay methods or kits cannot be used interchangeably. 21 Because ethnic data is not always readily available, this report includes an eGFR for both -Americans and non- Americans. The National Kidney Disease Education Program (NKDEP) does not endorse the use of the MDRD equation for patients that are not between the ages of 18 and 70, are , have extremes of body size, muscle mass, or nutritional status, or are non- or non-. According to the National Kidney Foundation, irrespective of diagnosis, the stage of the disease is based on the level of kidney function: Stage Description GFR(mL/min/1.73 m(2)) 1 Kidney damage with normal or decreased GFR 90 2 Kidney damage with mild decrease in GFR 60-89 3 Moderate decrease in GFR 30-59 4 Severe decrease in GFR 15-29 5 Kidney failure <15 (or dialysis) 22 READ AT 24HOURS OLD 23 * SERUM LEVELS OF PSA MEASURED USING THE GAVI FRANCA ACCESS HYBRITECH IMMUNOASSAY SHOULD NOT BE INTERPRETED ABSOLUTE EVIDENCE OF THE PRESENCE OR ABSENCE OF DISEASE. THE PSA VALUE SHOULD BE USED IN CONJUNCTION WITH OTHER PERTINENT CLINICAL DIAGNOSTIC PROCEDURES. 24 Non-immune <5 Equivocal 5 - 9 Immune >9 25 Negative <0.91 Equivocal 0.91 - 1.09 Positive >1.09 . Presence of antibodies to Rubeola is presumptive evidence of immunity except when active infection is suspected. 26 Negative <0.91 Equivocal 0.91 - 1.09 Positive >1.09 Presence of antibodies to Mumps is presumptive evidence of immunity except when active infection is suspected. 27 Negative <0.91 Equivocal 0.91 - 1.09 Positive >1.09 28 * SERUM LEVELS OF PSA MEASURED USING THE GAVI FRANCA ACCESS HYBRITECH IMMUNOASSAY SHOULD NOT BE INTERPRETED ABSOLUTE EVIDENCE OF THE PRESENCE OR ABSENCE OF DISEASE. THE PSA VALUE SHOULD BE USED IN CONJUNCTION WITH OTHER PERTINENT CLINICAL DIAGNOSTIC PROCEDURES. 29 FASTING 30 result jefferson'd 31 ---- RUN DATE: 05/30/07 [facility] NMI LIVE PAGE 1 RUN TIME: 1525 Specimen Inquiry RUN USER: INTERFACE [id number] JAMEEL REYES/M <REG REF 05/28> ([id number]) [facility] -- Specimen: [id number] FABIAN Spec Date: 05/28/[address] [facility] [address]: Negro dick MD Spec Type: SURGICAL P Received: 05/28/07-4929 Copies to: Odilon More MD SPECIMEN 1) LEFT LOBE PROSTATE BIOPSY APEX (APEX 3) 2) LEFT LOBE PROSTATE BIOPSY BASE (BASE 3) 3) RIGHT LOBE PROSTATE BIOPSY APEX (APEX 3) 4) RIGHT LOBE PROSTATE BIOPSY BASE (BASE 3) HISTORY PRE-OP DIAGNOSIS: Prostate nodule left base, PSA 3.23 GROSS DESCRIPTION 1) The specimen is received in formalin labelled Jameel Heberto, Left Prostate Lobe [place], and consists of two, plunkett, soft tissue cores measuring 0.9 cm., and 1.4 x 0.1 cm. Submitted entirely, one cassette. 2) The specimen is received in formalin labelled Jameel Liso, Left Prostate Lobe Base, and consists of three, plunkett, soft tissue cores measuring 1.0 cm., 1.9 cm., and 1.7 x 0.1 cm. Submitted entirely, one cassette. 3) The specimen is received in formalin labelled Jameel Heberto, Right Prostate Lobe [place], and consists of three, plunkett, soft tissue cores measuring 1.9 cm., 1.7 cm., and 1.1 x 0.1 cm. Submitted entirely, one cassette. 4) The specimen is received in formalin labelled Jameel Heberto, Right Prostate Lobe Base, and consists of three, plunkett, soft tissue cores measuring 1.5 cm., 1.7 cm., and 1.4 x 0.1 cm. Submitted entirely, one cassette. DIAGNOSIS 1) Prostate, left apex, core biopsies - A) Benign prostate tissue with partial atrophy and chronic inflammation. B) No evidence of malignancy. 2) Prostate, left base, core biopsies - A) Benign prostate tissue with partial atrophy and chronic inflammation. B) No evidence of malignancy. -- DEPARTMENT OF PATHOLOGY, [address] [place] [address] [facility] Permit #[id number] Donald Stevenson M.D. Director of Laboratories Catracho Wright II, M.D . Pathologist -- -- RUN DATE: 05/30/07 [facility] NMI LIVE PAGE 2 RUN TIME: 1525 Specimen Inquiry RUN USER: INTERFACE -- SPEC #: [id number] PATIENT: JAMEEL REYES #[id number] (Continued) -- DIAGNOSIS (Continued) 3) Prostate, right apex, core biopsies - A) Benign prostate tissue with partial atrophy and chronic inflammation. B) No evidence of malignancy. 4) Prostate, right base, core biopsies - A) Benign prostate tissue with partial atrophy and chronic inflammation. B) No evidence of malignancy. Signed Electronically by: DONALD STEVENSON MD 05/30/07 1525 -- -- DEPARTMENT OF PATHOLOGY, [address] [place] [address] [facility] Permit #[id number] Donald Stevenson M.D. Director of Laboratories Catracho Wright II, M.D . Pathologist -- 32 < .90 Neg (No Immunity) .91- 1.09 Equivocal >=1.10 Positive . 33 Confirmed on reassay . . < .90 Neg (No Immunity) .91- 1.09 Equivocal >=1.10 Positive . 34 < 0.90 Neg (No Immunity) 0.91- 1.09 Equivocal >=1.10 Positive . Procedures Date Code Description Status 01/29/2017 98242 Electrocardiogram Complete Completed 11/03/2014 32455 Electrocardiogram Complete Completed 01/13/2013 [id number] Colonoscopy Completed 09/27/2012 43617 Vision Test- screening test of visual acuity, Completed quantitative, bila 09/27/2012 44107 Electrocardiogram Complete Completed 02/04/2010 23113 Electrocardiogram Complete Completed 04/02/2008 82420 Electrocardiogram Complete Completed 06/17/2003 [id number] Colonoscopy Completed 05/12/2003 29559 Electrocardiogram Complete Completed Encounters Type Date Location Provider Dx Diagnosis Office Visit 09/17/2018 [facility] Josh Estrella.9 Acute upper 1:45p Afnp-C respiratory infection, unspecified J32.9 Chronic sinusitis, unspecified M54.6 Pain in thoracic spine Office Visit 09/11/2018 10:00a [facility] Amarilis Benavides06.9 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 unspecified I78.1 Nevus, non-neoplastic N40.2 Nodular prostate without lower urinary tract symptoms G47.33 Obstructive sleep apnea (adult) (pediatric) Z00.01 Encounter for general adult medical exam w abnormal findings Z23 Encounter for immunization K64.8 Other hemorrhoids K59.09 Other constipation Office Visit 09/08/2016 11:15a Main Office Yolie Lino J06.9 Acute upper SENIOR SOLUTIONS ARCHITECT respiratory infection, unspecified Office Visit 11/01/2015 2:40p Main Office Travis Sampson R21 Rash and other Joaquim Bess nonspecific skin eruption Office Visit 08/20/2015 11:00a Main Office Travis Sampson J01.00 Acute maxillary Joaquim Bess sinusitis, unspecified Office Visit 08/10/2015 3:20p Main Office Odilon Coelho G25.0 Essential tremor Joaquim More R51 Headache E78.2 Mixed hyperlipidemia B02.9 Zoster without complications Office Visit 07/13/2015 [facility] Kinza B02.9 Zoster without 3:45p Office [place], complications Afnp-C Office Visit 07/09/2015 Karina Mcguire M.D. H00.022 Hordeolum internum 3:40p Office right lower eyelid Office Visit 11/03/2014 Main Office Odilon Coelho 600.10 nodular prostate 5:00p Joaquim More without urinary obstruction 719.49 Pain Joint Multiple Sites 782.9 Skin & Integumentary Tissue Other Symptoms 300.00 Anxiety State Unspec V70.0 Examination General Medical Routine AT Health Care Facility V76.44 Screening For Malig Xavier Prostate Office Visit 05/02/2014 2:10p Main Office Alonso Subramanian, 461.8 Sinusitis Acute M.D. Other 465.9 URI Upper Respiratory Infections Acute Unspec Sites Office Visit 09/02/2013 3:40p [facility] Jerry Mcguire, 461.0 Sinusitis Acute M.D. Maxillary Office Visit 09/27/2012 2:20p [facility] Odilon Coelho 789.07 Pain Abdominal Shallish, Generalized M.D. 600.10 nodular prostate without urinary obstruction 477.8 Rhinitis Allergic Due To Other Allergen V70.0 Examination General Medical Routine AT Health Care Facility Office Visit 09/02/2012 4:30p Main Office Yolie Lino, 461.0 Sinusitis Acute SENIOR SOLUTIONS ARCHITECT Maxillary Office Visit 07/18/2012 1:15p [facility] Yolie Lino, 461.0 Sinusitis Acute SENIOR SOLUTIONS ARCHITECT Maxillary Office Visit 07/11/2012 2:00p [facility] Yolie Lino, 461.0 Sinusitis Acute SENIOR SOLUTIONS ARCHITECT Maxillary Office Visit 05/13/2012 3:40p [facility] Odilon Coelho 461.0 Sinusitis Acute Shallish, M.D. Maxillary 788.43 Nocturia Office Visit 01/25/2012 4:40p Main Office Joann Patterson, 719.46 Pain Joint M.D. Lower Leg 112.89 Candidiasis Other Office Visit 03/31/2011 2:40p [facility] Kay Sultana 782.1 Rash & Other Joaquim Mercado Nonspec Skin Eruption Office Visit 08/15/2010 7:30p Main Office Kay Sultana 461.0 Sinusitis Acute Joaquim Mercado Maxillary Office Visit 03/12/2010 12:30p Main Office Carolann Najera 719.46 Pain Joint Lower La[place], MLorenaDLorena Leg Office Visit 02/04/2010 8:00a [facility] Odilon Coelho 600.10 nodular prostate Shallish, M.D. without urinary obstruction 477.8 Rhinitis Allergic Due To Other Allergen V76.41 Screening Malignant Neoplasm Rectum V06.5 Tetanus Diphtheria (DT) V70.0 Examination General Medical Routine AT Health Care Facility v06.5 Tetanus Diphtheria (DT) V74.1 Screening Examination Pulmonary Tuberculosis v70.0 Examination General Medical Routine AT Health Care Facility Office Visit 11/10/2009 4:20p Main Office Kay Mercado, 729.5 Pain In Limb M.D. Office Visit 08/11/2009 3:40p Main Office Kay Mercado, 354.0 Carpal Tunnel M.D. Syndrome 724.2 Lumbago Office Visit 04/23/2009 3:45p Main Office Kinza Medina, 465.9 URI Upper Afnp-C Respiratory Infections Acute Unspec Sites Office Visit 08/19/2008 2:10p Main Office Alonso BetoLorena Subramanian, 706.2 Sebaceous Cyst M.D. Office Visit 05/05/2008 1:00p Main Office Odilon More, 461.0 Sinusitis Acute M.D. Maxillary 600.10 nodular prostate without urinary obstruction Office Visit 04/02/2008 2:20p Main Office Odilon More, 477.8 Rhinitis Allergic M.D. Due To Other Allergen 600.10 nodular prostate without urinary obstruction V70.0 Examination General Medical Routine AT Health Care Facility V76.41 Screening Malignant Neoplasm Rectum Office Visit 10/26/2007 12:40p Main Office Edu Shrestha, 461.9 Sinusitis Acute M.D. Unspec 477.2 Allergic Rhinitis Cat/Dog Office Visit 06/03/2007 10:45a Main Office Kinza Medina, 465.9 URI Upper Afnp-C Respiratory Infections Acute Unspec Sites Office Visit 02/28/2007 3:15p Main Office Telma Bland, 780.50 Sleep Disturbance Afnp-C Unspec Office Visit 10/25/2006 11:10a Main Office Odilon More, 461.9 Sinusitis Acute M.D. 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 Office Visit 10/24/2005 1:15p Main Office Radha Elmore 461.9 Sinusitis Acute Steven, SENIOR SOLUTIONS ARCHITECT-C Unspec Office Visit 07/13/2005 1:00p [facility] Yolie Lino, 780.52 Insomnia SENIOR SOLUTIONS ARCHITECT Unspecified Office Visit 02/14/2005 3:45p Main Office Odilon Coelho 892.0 Open Wound Foot Joaquim More Except Toe(S) Alone W/O Complication V06.5 Tetanus Diphtheria (DT) Office Visit 12/05/2004 3:00p Main Office SULEIMAN Garcia 995.3 Allergy Unspec 300.00 Anxiety State Unspec 311 Depressive Disorder Not Elsewhere Spec Office Visit 09/27/2004 11:00a [facility] Telma Bland, 727.09 Synovitis & Office Afnp-C Tenosynovitis Other Office Visit 06/07/2004 4:00p Main Office Yolie Nicerer, 300.00 Anxiety State SENIOR SOLUTIONS ARCHITECT Unspec 311 Depressive Disorder Not Elsewhere Spec Office Visit 05/10/2004 1:40p Main Office Bang Gresham, 790.93 Prostate Specific M.D. Antigen (PSA) Elevated 300.00 Anxiety State Unspec 311 Depressive Disorder Not Elsewhere Spec Office Visit 04/26/2004 4:15p Main Office Yolie Lino, SENIOR SOLUTIONS ARCHITECT 311 Depressive Disorder Not Elsewhere Spec 300.00 Anxiety State Unspec 780.52 Insomnia Unspecified Office Visit 03/26/2004 11:00a Main Office Yolie Lino, SENIOR SOLUTIONS ARCHITECT 300.00 Anxiety State Unspec 780.52 Insomnia Unspecified Office Visit 12/01/2003 3:30p Main Office Telma Bland, 465.9 URI Upper Afnp-C Respiratory Infections Acute Unspec Sites Office Visit 07/28/2003 4:15p [facility] Radha Harris, 719.41 Pain Joint SENIOR SOLUTIONS ARCHITECT-C Shoulder Region Office Visit 05/12/2003 1:00p Main Office Odilon Coelho V70.0 Examination Joaquim More General Medical Routine AT Health Care Facility 788.0 Colic Renal 729.5 Pain In Limb 455.6 Hemorrhoids Unspec W/O Complication Office Visit 02/09/2003 3:45p [facility] Odilon Coelho 607.84 Impotence Joaquim More Organic Origin Office Visit 08/06/2002 11:30a Main Office Yolie Lino, 461.0 Sinusitis Acute SENIOR SOLUTIONS ARCHITECT Maxillary Office Visit 12/04/2001 1:50p Main Office Bang Gresham M.D. Office Visit 08/29/2001 10:45a Main Office Magdalena Monroe-C Office Visit 08/06/2001 2:15p [facility] Yadi Estrella Office Visit 01/29/2001 9:30a Main Office Yadi Estrella Plan of Treatment Future Appointment(s):02/18/2019 2:20 pm - Odilon More M.D. at Main [id number]/19/2018 - Odilon More M.D.G20 Parkinson's diseaseComments:to see Neurology bzxgyJ50.83 Other fatigueComments:check lab workM25.561 Pain in right kneeComments:check lab workAllNew Medication:Physical Therapy - treatment and evaluation low back pain, right knee painComments:Medication Management Patient Understands medications he's taking? Yes No Are there Barriersto Adherence? Yes No Has the patient been asked about herbal supplements and therapies, and OTC meds? Yes No Patient here with several week history of generalized fatigue, right knee pain, patient states he doesn't feel rested in the morning. He denies other constitutional symptomsand denies significant depression. His Parkinson's essentially has not been treated as he takes Sinemet on an as needed basis. He is seeing his neurologist Dr. Meza later on today, and I told the patient that he may need to consider treatment for his Parkinson's. We'll check lab work today. Patient isconcerned about Lyme disease and he has not had a tick bite. He will return in 1-2 months for followup
[2019-01-02 18:31] VITALS: BP 117/73
--- NOTE | 2019-01-02 18:54 | UC ---
Back Pain HPI - HPI Summary HPI Summary: 68-year-old male comes in with a chief complaint of back pain after fall. Just prior to arrival he was going down some steps and had just drained and there are some. He slipped and fell and landed on his right flank and right lower chest area. Abdomen knocked out of him had a hard time breathing for about 20 seconds. He says since then the pain has almost gone away completely. Minimal or no pain when he takes a deep breath or twists or turns or bends. He has not urinated since the incident. No complaint of any other pain. - History of Current Complaint Chief Complaint: UCBackPain Stated Complaint: BACK INJURY Time Seen by Provider: 01/02/19 18:44 Pain Intensity: 0 - Allergies/Home Medications Allergies/Adverse Reactions: Allergies Allergy/AdvReac Type Severity Reaction Status Date / Time No Known Allergies Allergy Verified 01/02/19 18:31 Home Medications: Home Medications Carvidopa* 01/02/19 [History] Escitalopram * [Lexapro *] 01/02/19 [History] Melatonin 01/02/19 [History] Thyroid Med* 01/02/19 [History] PMH/Surg Hx/FS Hx/Imm Hx Previously Healthy: Yes - [place] - Surgical History Surgical History: Yes Surgery Procedure, Year, and Place: KIDNEY STONES - REMOVED. PILES - REMOVED FROM RECTUM - Family History Known Family History: Positive: Non-Contributory - Social History Alcohol Use: Rare Substance Use Type: None Smoking Status (MU): Never Smoked Tobacco Review of Systems All Other Systems Reviewed And Are Negative: Yes Constitutional: Positive: Negative Skin: Positive: Negative Eyes: Positive: Negative ENT: Positive: Negative Respiratory: Positive: Negative Cardiovascular: Positive: Negative Gastrointestinal: Positive: Negative Genitourinary: Positive: Negative Motor: Positive: Negative Neurovascular: Positive: Negative Musculoskeletal: Positive: Other: - SEE HPI Neurological: Positive: Negative Psychological: Positive: Negative Is Patient Immunocompromised?: No Physical Exam Triage Information Reviewed: Yes Appearance: Well-Appearing, No Pain Distress, Well-Nourished Vital Signs: Initial Vital Signs Temp 98.1 F 01/02/19 18:27 Pulse 59 01/02/19 18:27 Resp 16 01/02/19 18:27 BP 117/73 01/02/19 18:27 Pulse Ox 98 01/02/19 18:27 Vital Signs Reviewed: Yes Eye Exam: Normal Eyes: Positive: Conjunctiva Clear Neck: Positive: Supple Respiratory: Positive: Lungs clear, Normal breath sounds, No respiratory distress, Other: - MINIMAL TENDERNESS TO PALPATION RT LOWER POSTERIOR CHEST Cardiovascular: Positive: RRR Abdomen Description: Positive: Nontender, Soft. Negative: CVA Tenderness (R), CVA Tenderness (L) Musculoskeletal Exam: Normal Musculoskeletal: Positive: Strength Intact, ROM Intact, Other: - PATIENT IS ABLE TO TWIST/TURN/BEND BACK WITHOUT PAIN Neurological: Positive: Alert, Muscle Tone Normal Psychological Exam: Normal Psychological: Positive: Age Appropriate Behavior Skin Exam: Normal Back Pain Course/Dx - Course Course Of Treatment: I discussed the urine results with the patient. No hematuria on exam in clinic. Discussed getting x-rays of the ribs primarily on the right side where the patient's tender. Patient declined x-rays at this time. Patient has minimal tenderness to palpation in the right lower posterior ribs. He has full range of motion with the breasts was seen and turning and bending and denies any pain. We discussed if worse he should get reevaluated. - Differential Dx/Diagnosis Provider Diagnosis: Injury of back of thorax Discharge - Sign-Out/Discharge Documenting (check all that apply): Patient Departure All imaging exams completed and their final reports reviewed: No Studies - Discharge Plan Condition: Stable Disposition: HOME Patient Education Materials: Low Back Strain (ED) Referrals: Odilon More MD [Primary Care Provider] - Additional Instructions: FOLLOW UP WITH YOUR DOCTOR IF NOT COMPLETELY IMPROVED. GET RECHECKED SOONER IF YOUR CONDITION WORSENS; PAIN, SHORTNESS OF BREATH, BLOOD IN YOUR URINE, YOU FEEL ILL OR ANY QUESTIONS OR CONCERNS. - Billing Disposition and Condition Condition: STABLE Disposition: Home
== END 2019-01-02 19:31 | disposition home or self-care (01) ==
LOC: UCEAST 18:07
DX: S29.9XXA Unspecified injury of thorax, initial encounter (principal); W10.9XXA Fall (on) (from) unspecified stairs and steps, initial encounter; Y92.9 Unspecified place or not applicable; G20 Parkinson's disease
CPT/HCPCS: 81003; 99211; G0463

== ENCOUNTER 2019-01-04 15:28 | Emergency (ER) | payer MEDICARE, OTHER ==
--- NOTE | 2019-01-04 17:09 | ED ---
Back Pain - HPI Summary HPI Summary: 68 year old M presenting to [facility] with a chief complaint of right low back pain since walking down wooden stairs, slipping on these stairs, and landing on his back on 01/02/19 evening. The patient rates the pain 4/10 in severity. Symptoms aggravated by lying down. Symptoms alleviated by nothing. Patient denies painful breathing, neck pain, head trauma, and pain in the extremities. Patient was able to get up after falling. He was seen at [facility] and discharged. He denied x-rays at [facility] because he did not feel that his symptoms were too painful. Now though, patient states he has episodes of extreme back pain depending on what he is doing. Patient has treated pain with ibuprofen. Patient has hx back problems but denies back surgeries. - History of Current Complaint Chief Complaint: EDBackInjuryPain Stated Complaint: PAIN IN BACK PER PT Time Seen by Provider: 01/04/19 16:57 Hx Obtained From: Patient Onset/Duration: Lasting Days - 3, Still Present Onset/Duration: Started Days Ago - 3, Still Present Timing: Constant Back Pain Location: Is Discrete @ - right low back Severity Currently: Moderate Pain Intensity: 4 Pain Scale Used: 0-10 Numeric Aggravating Symptom(s): Nothing Alleviating Symptom(s): Nothing Associated Signs And Symptoms: Positive: Negative - painful breathing, neck pain , head trauma, and pain in the extremities - Allergies/Home Medications Allergies/Adverse Reactions: Allergies Allergy/AdvReac Type Severity Reaction Status Date / Time No Known Allergies Allergy Verified 01/04/19 15:34 PMH/Surg Hx/FS Hx/Imm Hx Previously Healthy: No - hx Parkinson's Endocrine/Hematology History: Denies: Hx Diabetes Cardiovascular History: Denies: Hx Hypertension, Hx Pacemaker/ICD GI History: Reports: Other GI Disorders - SBO History: Denies: Hx Renal Disease Sensory History: Reports: Hx Contacts or Glasses - glasses used Denies: Hx Hearing Aid Opthamlomology History: Reports: Hx Contacts or Glasses - glasses used Psychiatric History: Denies: Hx Panic Disorder - Surgical History Surgery Procedure, Year, and Place: KIDNEY STONES - REMOVED. PILES - REMOVED FROM RECTUM Infectious Disease History: No Infectious Disease History: Denies: Traveled Outside the [place] in Last 30 Days - Family History Known Family History: Negative: Cardiac Disease, Hypertension, Diabetes - Social History Alcohol Use: Rare Hx Substance Use: No Substance Use Type: Reports: None Hx Tobacco Use: No Smoking Status (MU): Never Smoked Tobacco Review of Systems Respiratory: Negative - painful breathing Musculoskeletal: Negative - neck pain, pain in the extremities Positive: Other - right low back pain All Other Systems Reviewed And Are Negative: Yes Physical Exam - Summary Physical Exam Summary: Appearance: Well-appearing, Well-nourished, lying in bed comfortable Skin: Warm, dry, no obvious rash Eyes: sclera anicteric, no conjunctival pallor ENT: mucous membranes moist Neck: deferred Back: Good ROM, forward and lateral flexion. There is focal tenderness in the right posterior rib cage with a small amount of crepitus. He appears to move quite easily with minimal discomfort. Respiratory: No signs of respiratory distress Cardiovascular: Appears well perfused, pulses are nml Abdomen: deferred Musculoskeletal: Moving all 4 extremities without obvious discomfort Neurological: Awake and alert, mentation is normal, speech is fluent and appropriate Psychiatric: affect is normal, does not appear anxious or depressed Triage Information Reviewed: Yes Vital Signs On Initial Exam: Initial Vitals Temp Pulse Resp BP Pulse Ox 98.6 F 75 16 131/86 95 01/04/19 15:29 01/04/19 15:29 01/04/19 15:29 01/04/19 15:29 01/04/19 15:29 Vital Signs Reviewed: Yes Diagnostics - Vital Signs Vital Signs Temp Pulse Resp BP Pulse Ox 01/04/19 15:29 98.6 F 75 16 131/86 95 - Laboratory Lab Statement: Any lab studies that have been ordered have been reviewed, and results considered in the medical decision making process. Back Pain Course/Dx - Course Course Of Treatment: 68 year old M presenting to [facility] with a chief complaint of right low back pain since walking down wooden stairs, slipping on these stairs, and landing on his back on 01/02/19 evening. Patient was able to get up after falling. He was seen at [facility] and discharged. He denied x -rays at [facility] because he did not feel that his symptoms were too painful. Now though, patient states he has episodes of extreme back pain. Physical exam findings: Good ROM, forward and lateral flexion. There is focal tenderness in the right posterior rib cage with a small amount of crepitus. He appears to move quite easily with minimal discomfort. In the ED course, the patient was given lidocaine patches. Patient will be discharged with follow up from Dr. More, his primary care provider. He was advised to take extra strength tylenol 1000 mg 4 times daily, and to use lidocaine patches to treat the pain. He was instructed to return to the ED for new or worsening symptoms. The patient is agreeable with this plan. - Diagnoses Provider Diagnoses: Chest wall contusion Discharge - Sign-Out/Discharge Documenting (check all that apply): Patient Departure - Discharge Patient Received Moderate/Deep Sedation with Procedure: No - Discharge Plan Condition: Good Disposition: HOME Patient Education Materials: Chest Wall Pain (ED) Referrals: Odilon More MD [Primary Care Provider] - Additional Instructions: I would not expect your pain to worsen over the next couple of days, so if it is we should see you back for another evaluation. In the interim, you can use extra strength tylenol 1000 mg 4 times daily, and also lidocaine patches can be helpful. - Billing Disposition and Condition Condition: GOOD Disposition: Home - Attestation Statements Document Initiated by Jemale: Yes Documenting Scribe: Ynes Rosales Provider For Whom Ryan is Documenting (Include Credential): Ren Haddad MD Scribe Attestation: I, Ynes Rosales, scribed for Ren Haddad MD on 01/04/19 at 2204. Scribe Documentation Reviewed: Yes Provider Attestation: The documentation as recorded by the [email or web address] accurately reflects the service I personally performed and the decisions made by me, Ren Haddad MD Status of Scribe Document: Viewed
[2019-01-04] MEDS ORDERED: Lidocaine PATCH 5%* 1 PATCH ONE (17:21)
[2019-01-04 17:25] VITALS: BP 142/79
[2019-01-04] MEDS ORDERED: Lidocaine PATCH 5%* 1 PATCH TRANSDERM SCH (18:00)
[2019-01-04] MEDS ORDERED: Lidocaine Patch REMOVE* 1 NOTE MISC SCH (21:00)
== END 2019-01-04 17:24 | disposition home or self-care (01) ==
LOC: ED 15:28
DX: S20.211A Contusion of right front wall of thorax, initial encounter (principal); W10.9XXA Fall (on) (from) unspecified stairs and steps, initial encounter; Y92.9 Unspecified place or not applicable; M54.5 Low back pain; G20 Parkinson's disease
CPT/HCPCS: 99282; A9270-GY

== ENCOUNTER 2019-01-05 20:53 | Emergency (ER) | payer MEDICARE, OTHER ==
--- NOTE | 2019-01-05 21:49 | ED ---
GI/ HPI - HPI Summary HPI Summary: 68-year-old male presents with intermittent abdominal pain today. Pain is mostly in his right upper quadrant. No pain whens laying down but has pain when walking. He believes it may related to his rib pain that he sustained couple days ago due to a fall. He denies any hematuria. Denies any chest pain or shortness breath. No cough. No dysuria. Is not on blood thinners. States the pain is more like a spasm. States it feels more like abdominal wall. Denies any nausea vomiting. No decreased appetite. No diarrhea constipation. He has tried Tylenol for his pain. - History of Current Complaint Chief Complaint: EDAbdPain Time Seen by Provider: 01/05/19 21:32 Stated Complaint: "ABD PAIN PER PT" Pain Intensity: 5 - Allergy/Home Medications Allergies/Adverse Reactions: Allergies Allergy/AdvReac Type Severity Reaction Status Date / Time No Known Allergies Allergy Verified 01/05/19 21:47 PMH/Surg Hx/FS Hx/Imm Hx Endocrine/Hematology History: Denies: Hx Diabetes Cardiovascular History: Denies: Hx Hypertension, Hx Pacemaker/ICD GI History: Reports: Other GI Disorders - SBO History: Denies: Hx Renal Disease Sensory History: Reports: Hx Contacts or Glasses - glasses used Denies: Hx Hearing Aid Opthamlomology History: Reports: Hx Contacts or Glasses - glasses used Psychiatric History: Denies: Hx Panic Disorder - Surgical History Surgery Procedure, Year, and Place: KIDNEY STONES - REMOVED. PILES - REMOVED FROM RECTUM Infectious Disease History: No Infectious Disease History: Denies: Traveled Outside the [place] in Last 30 Days - Family History Known Family History: Negative: Cardiac Disease, Hypertension, Diabetes - Social History Alcohol Use: Rare Hx Substance Use: No Substance Use Type: Reports: None Hx Tobacco Use: No Smoking Status (MU): Never Smoked Tobacco Review of Systems Negative: Fever Negative: Chest Pain Negative: Shortness Of Breath, Cough Positive: Abdominal Pain. Negative: Vomiting, Diarrhea, Nausea All Other Systems Reviewed And Are Negative: Yes Physical Exam Triage Information Reviewed: Yes Vital Signs On Initial Exam: Initial Vitals Temp Pulse Resp BP Pulse Ox 97.8 F 69 18 152/80 96 01/05/19 20:55 01/05/19 20:55 01/05/19 20:55 01/05/19 20:55 01/05/19 20:55 Vital Signs Reviewed: Yes Appearance: Positive: Well-Appearing Skin: Positive: Warm, Dry Head/Face: Positive: Normal Head/Face Inspection Eyes: Positive: Normal ENT: Positive: Pharynx normal Respiratory/Lung Sounds: Positive: Clear to Auscultation, Breath Sounds Present , Other - tenderness over right lower ribs Cardiovascular: Positive: Normal, RRR Abdomen Description: Positive: Nontender, Soft. Negative: CVA Tenderness (R), CVA Tenderness (L) Bowel Sounds: Positive: Present Musculoskeletal: Positive: Normal Neurological: Positive: Normal Psychiatric: Positive: Normal Diagnostics - Vital Signs Vital Signs Temp Pulse Resp BP Pulse Ox 01/05/19 20:55 97.8 F 69 18 152/80 96 - Laboratory Result Diagrams: 01/05/19 21:48 01/05/19 21:48 Lab Statement: Any lab studies that have been ordered have been reviewed, and results considered in the medical decision making process. - Radiology ribs Radiology Interpretation Completed By: ED Physician Summary of Radiographic Findings: no displaced fracture - Ultrasound No standard instances Ultrasound Interpretation Completed By: Radiologist Summary of Ultrasound Findings: IMPRESSION: 1. No sonographic findings to correlate with patient's symptomatology. 2. Mild renal parenchymal disease. Re-Evaluation - Re-Evaluation First Eval Re-Evaluation Time: 23:00 Comment: nontender abd pain, tenderness right rib pain Second Eval Re-Evaluation Time: 00:07 Change: Improved Comment: able to ambulate GIGU Course/Dx - Course Course Of Treatment: 68-year-old male presents with intermittent abdominal pain today. Pain is mostly in his right upper quadrant. No pain whens laying down but has pain when walking. He believes it may related to his rib pain that he sustained couple days ago due to a fall. He denies any hematuria. Denies any chest pain or shortness breath. No cough. No dysuria. Is not on blood thinners. States the pain is more like a spasm. States it feels more like abdominal wall. Denies any nausea vomiting. No decreased appetite. No diarrhea constipation. He has tried Tylenol for his pain. On exam tenderness over right lower ribs. Nontender abdomen. White blood count normal. crp elevated. X-ray read by me as no displaced fracture. Gallbladder ultrasound normal. On repeat exam patient has nontender abdomen. Does still have tenderness over right ribs. States though when did ambulate did get some spasming type pain in the right upper quadrant. We'll prescribe muscle relaxer. Told to use ice and heat. told follow up with primary. Patient understands agrees the plan. - Diagnoses Differential Diagnoses - Male: Gall Bladder Disease, Urinary Tract Infection, Other - rib fracture Provider Diagnoses: Rib pain on right side, Abdominal pain Discharge - Sign-Out/Discharge Documenting (check all that apply): Patient Departure Patient Received Moderate/Deep Sedation with Procedure: No - Discharge Plan Condition: Good Disposition: HOME Prescriptions: Cyclobenzaprine TAB* [Flexeril 10 MG TAB*] 10 mg PO BID PRN #10 tab PRN Reason: Pain Lidocaine PATCH 5%* [Lidoderm 5% Patch*] 1 patch TRANSDERM DAILY #6 patch Patient Education Materials: Rib Contusion (ED) Referrals: Odilon More MD [Primary Care Provider] - Additional Instructions: take flexeril up to two times a day apply lidocaine patch every 12 hours, then remove for 12 hours apply ice or heat Take deep breath throughout the day take tyenlol every 6 hours as needed for pain Follow up with primary within 5 days Return to ED if develop fever, vomiting, blood in urine, or any new or worsening symptoms - Billing Disposition and Condition Condition: GOOD Disposition: Home
[2019-01-05 21:58] LABS: ABS Basophils 0.1 10^3/ul (0-0.2); ABS Eosinophils 0.1 10^3/ul (0-0.6); ABS Lymphocytes 1.7 10^3/ul (1.0-4.8); ABS Monocytes 0.8 10^3/ul (0-0.8); ABS Neutrophils 5.8 10^3/ul (1.5-7.7); Eosinophil % 0.8 %; Hematocrit 45 % (42-52); Hemoglobin 15.4 g/dL (14.0-18.0); Lymphocyte % 20.5 %; Mean Corpuscular HGB Conc 34 g/dL (31-36); Mean Corpuscular Hemoglobin 33 pg (27-31); Mean Corpuscular Volume 98 fL (80-94); Mean Platelet Volume 10.5 fL (7.4-10.4); Platelet Count 168 10^3/uL (150-450); Red Blood Count 4.63 10^6 /uL (4.18-5.48); Red Cell Distribution Width 13 % (10-15); White Blood Count 8.5 10^3/uL (3.5-10.8)
[2019-01-05 22:03] LABS: INR 1.15 (0.82-1.09)
[2019-01-05 22:14] LABS: Albumin 4.1 g/dL (3.2-5.2); Albumin/Globulin Ratio 1.3 (1-3); BUN/Creatinine Ratio 32.5 (8-20); C Reactive Protein 15.08 mg/L (<8.01); Calcium 9.5 mg/dL (8.6-10.3); EGFR African American 111.2 (>60); EGFR Non-African American 91.9 (>60); Globulin 3.2 g/dL (2-4); Potassium 4.2 mmol/L (3.5-5.0); Total Bilirubin 0.6 mg/dL (0.2-1.0); Total Protein 7.3 g/dL (6.4-8.9)
[2019-01-05] MEDS ORDERED: Cyclobenzaprine TAB* 10 MG PO ONE (22:59)
[2019-01-06] MEDS ORDERED: Lidocaine PATCH 5%* 1 PATCH TRANSDERM ONE (00:03)
[2019-01-06 00:14] VITALS: BP 137/79
--- NOTE | 2019-01-06 13:48 | PN ---
Progress Note - Progress Note Date of Service: 01/05/19
[2019-01-06] MEDS ORDERED: Lidocaine Patch REMOVE* 1 NOTE MISC SCH (21:00)
== END 2019-01-06 00:15 | disposition home or self-care (01) ==
LOC: ED 20:53
DX: R07.81 Pleurodynia (principal); R10.11 Right upper quadrant pain; Z87.442 Personal history of urinary calculi
CPT/HCPCS: 36415; 76705; 80053; 83605; 83690; 85025; 85610; 86140; 99283; A9270-GY

== ENCOUNTER 2019-01-06 14:20 | Emergency (ER) | payer MEDICARE, OTHER ==
--- NOTE | 2019-01-06 15:24 | ED ---
Adult Trauma - HPI Summary HPI Summary: 68-year-old presents for reevaluation of pneumothoraxic today. He fell 5 days ago onto his right side. He states he does get occasional right rib pain that radiates to abd. He states is worse when he is standing or moving. He states that he has no pain currently. He denies any shortness of breath. He denies any cough or fever. He denies any respiratory illnesses. He has history of Parkinson's. X-rays were taken last night and final read shows that he has a small apical pneumothoarcic along with rib fractures is 7-8. flexeril did not help. He states gets muscle spasms in abd with walking but no pain in abd currently. He denies any chest pain still occasionally posterior right rib pain. - History of Current Complaint Chief Complaint: EDFall Stated Complaint: ADDITIONAL XRAY PER PT Time Seen by Provider: 01/06/19 14:47 Pain Intensity: 1 - Allergy/Home Medications Allergies/Adverse Reactions: Allergies Allergy/AdvReac Type Severity Reaction Status Date / Time No Known Allergies Allergy Verified 01/06/19 14:25 PMH/Surg Hx/FS Hx/Imm Hx Endocrine/Hematology History: Denies: Hx Diabetes Cardiovascular History: Denies: Hx Hypertension, Hx Pacemaker/ICD Respiratory History: Denies: Hx Asthma, Hx Chronic Obstructive Pulmonary Disease (COPD) GI History: Reports: Other GI Disorders - SBO History: Denies: Hx Renal Disease Sensory History: Reports: Hx Contacts or Glasses - glasses used Denies: Hx Hearing Aid Opthamlomology History: Reports: Hx Contacts or Glasses - glasses used Psychiatric History: Denies: Hx Panic Disorder - Surgical History Surgery Procedure, Year, and Place: KIDNEY STONES - REMOVED. PILES - REMOVED FROM RECTUM Infectious Disease History: No Infectious Disease History: Denies: Traveled Outside the [place] in Last 30 Days - Family History Known Family History: Negative: Cardiac Disease, Hypertension, Diabetes - Social History Alcohol Use: Rare Hx Substance Use: No Substance Use Type: Reports: None Hx Tobacco Use: No Smoking Status (MU): Never Smoked Tobacco Review of Systems Negative: Fever Negative: Chest Pain Positive: Other - rib pain occassionally. Negative: Shortness Of Breath Positive: Abdominal Pain - occassionally All Other Systems Reviewed And Are Negative: Yes Physical Exam Triage Information Reviewed: Yes Vital Signs On Initial Exam: Initial Vitals Temp Pulse Resp BP Pulse Ox 97.9 F 70 18 145/90 99 01/06/19 14:22 01/06/19 14:22 01/06/19 14:22 01/06/19 14:01/06/19 14:22 Vital Signs Reviewed: Yes Appearance: Positive: Well-Appearing Skin: Positive: Warm, Dry Head/Face: Positive: Normal Head/Face Inspection Eyes: Positive: Normal, Conjunctiva Clear ENT: Positive: Pharynx normal Respiratory/Lung Sounds: Positive: Clear to Auscultation, Breath Sounds Present , Other - tenderness mild right lower posterior ribs Cardiovascular: Positive: Normal, RRR Abdomen Description: Positive: Nontender, Soft Bowel Sounds: Positive: Present Musculoskeletal: Positive: Normal Neurological: Positive: Normal Psychiatric: Positive: Normal Diagnostics - Vital Signs Vital Signs Temp Pulse Resp BP Pulse Ox 01/06/19 14:22 97.9 F 70 18 145/90 99 - Laboratory Lab Statement: Any lab studies that have been ordered have been reviewed, and results considered in the medical decision making process. Re-Evaluation - Re-Evaluation First Eval Re-Evaluation Time: 15:57 Comment: lungs CTA. o2 stat normal. nontender abd. mild tenderness right ribs Adult Trauma Course/Dx - Course Course Of Treatment: 68-year-old presents for reevaluation of pneumothoraxic today. He fell 5 days ago onto his right side. He states he does get occasional right rib pain that radiates to abd. He states is worse when he is standing or moving. He states that he has no pain currently. He denies any shortness of breath. He denies any cough or fever. He denies any respiratory illnesses. He has history of Parkinson's. X-rays were taken last night and final read shows that he has a small apical pneumothoarcic along with rib fractures is 7-8. On exam patient's lungs clear to auscultation. O2 sat is normal. Chest x-ray shows stable pneumothoarcic. discussed with dr ortiz who says will need to follow up with primary or thoracic surgery. discussed with dr durham says can follow up with primary as has been stable. will prescribe tramadol for pain. patient understand and agrees with plan. - Diagnoses Differential Diagnosis/HQI/PQRI: Positive: Contusion(s), Fracture Provider Diagnoses: Pneumothorax, Rib fractures Discharge - Sign-Out/Discharge Documenting (check all that apply): Patient Departure Patient Received Moderate/Deep Sedation with Procedure: No - Discharge Plan Condition: Good Disposition: HOME Prescriptions: traMADol TAB* [Ultram*] 50 mg PO Q12H PRN #10 tab MDD 2 PRN Reason: Pain Patient Education Materials: Traumatic Pneumothorax (ED), Rib Fracture (ED) Referrals: Odilon More MD [Primary Care Provider] - Additional Instructions: stop flexeril, use tramadol every 12 hours as needed for pain take tyenlol every 6 hours as needed for pain Take deep breath throughout the day apply ice to the area Follow up with primary within 5 days Return to ED if develop any new or worsening symptoms - Billing Disposition and Condition Condition: GOOD Disposition: Home
[2019-01-06 16:50] VITALS: BP 141/83
== END 2019-01-06 16:15 | disposition home or self-care (01) ==
LOC: ED 14:20
DX: S27.0XXD Traumatic pneumothorax, subsequent encounter (principal); S22.41XD Multiple fractures of ribs, right side, subsequent encounter for fracture with routine healing; W19.XXXD Unspecified fall, subsequent encounter
CPT/HCPCS: 71046; 99282

== ENCOUNTER 2024-08-12 06:26 | Observation (INO) ==
[~2024-08-12 06:26] MED LIST: Naloxone 0.4 mg VIAL 0.4 mg/ml 1 ml VIAL IV PRN; Ondansetron 4 mg VIAL 2 MG/ML 2 ml VIAL IV PRN
[2024-08-12] MEDS ORDERED: Dexamethasone IV 4 MG/ML VIAL 1 ml VIAL ONE ×2 (07:08→08:46)
[2024-08-12] MEDS ORDERED: fentaNYL 100 mcg/2 ml 50 MCG/ML VIAL ONE ×2 (07:08→10:50)
[2024-08-12] MEDS ORDERED: ROPIVACAINE 5 MG/ML 30 ML BTL (0.5%) ONE (07:08)
[2024-08-12] MEDS ORDERED: ceFAZolin 2 GM PREMIX 2 GM/50 ML BAG ONE (07:11)
[2024-08-12 07:18] LABS: Rapid COVID-19 Molecular Undetected (Undetected)
[2024-08-12] MEDS ORDERED: Lidocaine 2% PF 5 ML VIAL ONE (07:21)
[2024-08-12] MEDS ORDERED: Phenylephrine IV 10 MG/ML 1 ml VIAL ONE (07:23)
[2024-08-12] MEDS ORDERED: Tranexamic Acid 1 GM/100ML BAG 2,000 MG/200 ML BAG IV ONE (08:21)
[2024-08-12] MEDS ORDERED: Ondansetron 4 mg VIAL 2 MG/ML 2 ml VIAL ONE (08:46)
[2024-08-12] MEDS ORDERED: Ondansetron ODT 4 mg TAB 4 MG TAB PO PRN (09:03)
[2024-08-12] MEDS ORDERED: Ondansetron 4 mg VIAL 2 MG/ML 2 ml VIAL IV PRN (09:03)
[2024-08-12] MEDS ORDERED: Calcium Carb (TUMS) 500 mg CHEW TAB PO PRN (09:03)
[2024-08-12] MEDS ORDERED: Morphine 2 MG/ML SYRINGE IV PRN (09:03)
[2024-08-12] MEDS ORDERED: Magnesium Hydroxide LIQ 30 ML UDC PO PRN (09:03)
[2024-08-12] MEDS: fentaNYL 100 mcg/2 ml 50 MCG/ML VIAL IV PRN (10:50)
[2024-08-12] MEDS: ceFAZolin 2 GM PREMIX 2 GM/50 ML BAG IV SCH (13:16)
[2024-08-12] MEDS: Acetaminophen IV 1 GM/100ML 1,000 MG/100 ML BAG IV ONE (13:16)
[2024-08-12] MEDS: Buffered Lidocaine 1% SYRIN 1 ml INTRADERM ONE (13:16)
[2024-08-12] MEDS: Lactated Ringers 1000 ml BAG 1,000 ML IV SCH ×2 (13:16→13:17)
[2024-08-12] MEDS: Carbidopa/Levodop 25/100 MG TAB PO SCH ×2 (14:00→17:24)
[2024-08-12] MEDS: Amantadine SOLN ORALSYR 10 mg/ml PO ONE (18:14)
[2024-08-12] MEDS: Magnesium Hydroxide LIQ 30 ML UDC PO SCH (21:34)
[2024-08-13 05:58] LABS: Hematocrit 30.2 % (38-53); Hemoglobin 10.5 g/dL (13.2-16.3); Mean Platelet Volume 10.8 fL (7.5-11.2); Platelet Count 126 10^3/uL (150-450)
[2024-08-13 06:14] LABS: Calcium 8.8 mg/dL (8.6-10.3); Creatinine, Serum 1.92 mg/dL (0.67-1.17); Potassium 4.5 mmol/L (3.5-5.0); eGFR CKD-EPI 35.9 (>60)
[2024-08-13] MEDS: Vitamin THERAPEUTIC TAB PO SCH (08:40)
[2024-08-13] MEDS: Amantadine SOLN ORALSYR 10 mg/ml PO SCH (08:41)
[2024-08-13] MEDS ORDERED: Amantadine SOLN ORALSYR 10 mg/ml PO SCH (09:00)
[2024-08-13] MEDS: NS 0.9% 1000 ml BAG 1,000 ML IV SCH (09:21)
[2024-08-13 20:04] LABS: Urine Appearance No Cx Clear (Clear); Urine Bilirubin No Culture Negative (Negative); Urine Blood No Culture Negative (Negative); Urine Color No Culture Yellow; Urine Glucose No Culture Negative (Negative); Urine Ketones No Culture Trace (Negative); Urine Leukocytes No Culture 75 (1+) Leu/uL (Negative); Urine Nitrite No Culture Negative (Negative); Urine Protein No Culture Negative (Negative); Urine Specific Gravity No Cx 1.021 (1.002-1.030); Urine Urobilinogen No Cx Negative (Negative)
[2024-08-13 20:11] LABS: Urine Bacteria No Culture Absent /HPF (Absent); Urine Red Blood Cell No Cult 1+(3-5/hpf) /HPF (0-Trace); Urine White Blood Cell No Cult 1+(6-10/hpf) /HPF (0-Trace)
[2024-08-14 05:27] LABS: Hematocrit 32.7 % (38-53); Hemoglobin 11.3 g/dL (13.2-16.3); Platelet Count 128 10^3/uL (150-450)
[2024-08-14 08:10] LABS: Calcium 8.4 mg/dL (8.6-10.3); Creatinine, Serum 1.94 mg/dL (0.67-1.17); Potassium 4.5 mmol/L (3.5-5.0); eGFR CKD-EPI 35.4 (>60)
[2024-08-14] MEDS: Lactulose 30 ml UDC PO ONE (10:03)
[2024-08-15 06:29] LABS: Hematocrit 32.9 % (38-53); Hemoglobin 11.2 g/dL (13.2-16.3); Mean Platelet Volume 11.3 fL (7.5-11.2); Platelet Count 127 10^3/uL (150-450)
[2024-08-15 06:51] LABS: Calcium 8.3 mg/dL (8.6-10.3); Creatinine, Serum 1.66 mg/dL (0.67-1.17); Potassium 4.3 mmol/L (3.5-5.0); eGFR CKD-EPI 42.7 (>60)
[2024-08-15] MEDS: Lactulose 30 ml UDC PO PRN (09:41)
[2024-08-15 09:52] VITALS: BP 120/70
== END 2024-08-15 13:30 | disposition home or self-care (01) ==
LOC: SSU 06:26 → OR 06:26
PROVIDERS: ADMIT Orthopaedic Surgery Adult Reconstructive Orthopaedic Surgery; ATTEND Orthopaedic Surgery Adult Reconstructive Orthopaedic Surgery